=== PATIENT | male | born 1955 | race Caucasian/White ===

== ENCOUNTER 2024-09-03 07:10 | Day surgery (SDC) | payer OTHER, SELFPAY ==
[2024-09-03] VITALS (14 sets, daily range): BP systolic 115–161; BP diastolic 57–98; BMI 29.8
[2024-09-03] MEDS: LOW STRENGTH ASPIRIN 81 MG PO (07:54)
[2024-09-03 07:55] LABS: Glucose - Point of Care 152 mg/dl (70-99)
[2024-09-03] MEDS: NSS 200 IV (08:10)
[2024-09-03 08:35] LABS: Hematocrit 48.5 % (39.0-52.0); Hemoglobin 17.2 g/dL (13.0-18.0); Mean Corp Hgb Conc. 35.5 g/dL (33.0-37.0); Mean Corpuscular Hgb 31.4 pg (27.0-31.0); Mean Corpuscular Volume 88.7 fL (80.0-94.0); Mean Platelet Volume 11.2 fL (7.4-10.4); Platelet Count 159 10^3/uL (130-400); Red Blood Cell Count 5.47 10^6/uL (4.70-6.10); Red Cell Dist. Width 12.4 % (11.5-14.5); White Blood Cell Count 6.7 10^3/uL (4.8-10.8)
[2024-09-03 08:45] LABS: ALT (SGPT) 47 U/L (0-50); AST (SGOT) 34 U/L (17-59); Alkaline Phosphatase 85 U/L (38-126); Blood Urea Nitrogen 18 mg/dl (9-20); Calcium 9.7 mg/dl (8.4-10.2); Carbon Dioxide 22 mmol/L (22-30); Chloride 107 mmol/L (98-107); Estimated Creatinine Clearance > 125 ml/min; Glucose 138 mg/dl (70-99); Potassium 4.7 mmol/L (3.5-5.1); Sodium 141 mmol/L (135-145); Total Bilirubin 1.2 mg/dl (0.2-1.3); Total Protein 7.5 g/dl (6.3-8.2); eGFR > 60.00
--- NOTE | 2024-09-03 10:11 | ITS.CL.CATH ---
Winding Inspector And Tester - Catheterization
Cardiac Catheterization
Procedure Report:
LEFT HEART CATHETERIZATION
Date of Procedure: September 03, 2024
Procedures performed:
1: Coronary angiography
2: Left ventriculography
Primary Care Physician: Dr. Paula Mancilla
Primary Chapter Relations Administrator: Dr. Desmond Perez
INDICATION: The patient is a 69-year-old man who presents for coronary angiography in preparation for aortic valve intervention with progressive severe aortic valvular stenosis.
ACCESS: The patient was prepped and draped in usual sterile fashion. A 6 Algerian sheath was placed in the right radial artery using the Seldinger over the wire technique.
HEMODYNAMIC FINDINGS (mmHg):
LV(s/d,EDP): 230/19, 32
Ao(s/d,m): 150/71, 104
ANGIOGRAPHIC FINDINGS:
Single-plane Left Ventriculography in VELEZ Projection: Not done. Preserved LV systolic function by echo performed on August 06 with a visually estimated ejection fraction of 55 to 60%. Mean gradient by echo was 56 mmHg with a calculated aortic
valve area of 0.8 cm�.
Coronary Angiography:
Dominance: Codominant
Left Main: Short, normal.
Left Anterior Descending: The left anterior descending artery is a medium caliber vessel that gives rise to one major bifurcating diagonal branch. The LAD wraps around the apex to feed a significant portion of the distal inferior wall. These
vessels have only mild luminal irregularities.
Ramus intermedius: Medium caliber vessel that is angiographically normal.
Left Circumflex: The left circumflex is a medium caliber codominant vessel that gives rise to a large bifurcating first obtuse marginal branch and a large distal posterior left ventricular branch. These vessels are angiographically normal.
Right Coronary: The right coronary artery is a relatively small caliber codominant vessel that gives rise to a relatively small caliber posterior descending artery. These vessels have only very mild luminal irregularities.
Fluoroscopy Time (min): 4.6
Radiation Dose (mGy): 574
DAP (Gy.cm2): 36
Closure device: None. A TR band was applied for hemostasis at the right wrist.
Complications: None.
ASSESSMENT:
1: Very mild nonobstructive coronary artery disease. No significant change from prior angiography in 2011.
2: Severe aortic valvular stenosis.
CONCLUSIONS and RECOMMENDATIONS:
1: Proceed with evaluation for aortic valve intervention. Given his young age and history of PAF I think surgical valve replacement with left atrial appendage occlusion and intraoperative maze is more likely the most sensible way to proceed. Will
proceed with TAVR evaluation as well with chest and leg imaging as per routine and plan to present to the valve team.
Jeremías Cam M.D.
Copy to: Dr. Paula Mancilla
[2024-09-03 10:36] LABS: Glucose - Point of Care 121 mg/dl (70-99)
[2024-09-03] MEDS: COZAAR 100 MG PO (11:43)
[2024-09-03] MEDS: NSS IV ×5 (11:54→11:55)
[2024-09-03] MEDS: NSS 1000 IV (11:55)
--- NOTE | 2024-09-03 11:55 | CONSULT.STRU ---
Consultation
-
Date/Time Consultation Requested: 09/03/2024
Date/Time Consultation Performed: 09/03/2024
Requesting Provider: Dr. Cam
Performing Provider: CHIVO Liang
Reason for Consultation: Aortic stenosis
Patient History
Physicians
Family Physician: Paula Mancilla
Outpatient Photo Tech: Desmond Perez
Primary Photo Tech: Desmond Perez
History of Present Illness
Mr. Abdi is a very pleasant, well appearing 69yo male that underwent cardiac catheterization today with Dr. Cam as part of his aortic stenosis evaluation. He has been following with Dr. Perez and only recently has noticed mild FOX,
particularly when walking his driveway which has a slight incline. He denies chest pain, orthopnea, PND, peripheral edema or palpitations. He has a history of afib/ flutter but underwent an ablation with Dr. Perez in 2020 and since then has not
had any significant episodes. He does have Xarelto which he has been instructed to take if he goes into a-fib but currently is not taking. His echocardiogram on 08/06/2024 showed a peak aortic valve gradient of 92.2 mmHg. A mean aortic valve
gradient of 56.3 mmHg. There is mild to moderate aortic regurgitation. Anatomically Trileaflet, Functionally Bicuspid Aoric Valve wuth RCC and LCC calcific f. Mild to moderate AI. EF was 55-60%. Cardiac cath today showed very mild nonobstructive
coronary artery disease. No significant change from prior angiography in 2010.
Reviewed the pathophysiology of aortic stenosis with the patient and his . Explained the treatment options of SAVR and TAVR. Explained the TAVR evaluation process including follow up BMP, CT TAVR scan, CT surgery consult and Heart Team
discussion. Explained the need for lifetime planning given his young age. Provided with script for BMP next week, script and appointment for CT TAVR, Consult appointment with Dr. Morales and a copy of the TAVR education booklet with contact
information. Allowed for and answered questions.
Past Medical History
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
to moderate AI, trace TR) and Other (left knee effusion, osteoarthritis lorraine. knees, chronic headaches)
Past Surgical History
Past Surgical History: Appendectomy, Orthopedic (right knee surgery, Left rotator cuff repair) and Other (multiple excisions for skin CA)
Dental History
[facility]- will call to make appointment.
Family History
Mother: at Age (84yo, CHF)
Father: at Age (76yo, scleroderma)
Social History
Alcohol: Daily (5 beers/daily)
Drug: None
Tobacco: Former Smoker (quit 08/23/2020, prior 1/2 ppd x 40 years)
Personal:
Living: With Spouse
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
Allergies
Allergy/AdvReac Type Severity Reaction Status Date / Time
No Known Allergies Allergy Unverified 09/03/24 07:53
Home Medications
�Medication �Instructions �Recorded �Confirmed �Type
ascorbic acid (vitamin C) 500 mg 500 mg PO DAILY 07/26/10 09/03/24 History
chewable tablet (Vitamin C)
empagliflozin 25 mg tablet 25 mg PO DAILY 08/24/20 09/03/24 History
(Jardiance)
losartan 100 mg tablet 100 mg PO DAILY 08/24/20 09/03/24 History
metformin 1,000 mg tablet 1,000 mg PO BID 08/24/20 09/03/24 History
multivitamin (One Daily tablet) 1 ea PO DAILY 08/24/20 09/03/24 History
omega-3 acid ethyl esters 1 gram 1 gm PO BID 08/24/20 09/03/24 History
capsule (Lovaza)
sertraline 50 mg tablet 50 mg PO DAILY 08/24/20 09/03/24 History
tamsulosin 0.4 mg capsule 0.4 mg PO DAILY 08/24/20 09/03/24 History
Lactobacillus 40-Bifidobact cap PO 09/03/24 History
3-S.thermophilus 100 billion cell
capsule (Probiotic)
aspirin 81 mg capsule 81 mg PO DAILY 09/03/24 09/03/24 History
cholecalciferol (vitamin D3) 50 50 mcg PO DAILY 09/03/24 09/03/24 History
mcg (2,000 unit) capsule (Vitamin
D3)
propranolol 160 mg capsule,24 160 mg PO DAILY 09/03/24 09/03/24 History
hr,extended release
propranolol 80 mg capsule,24 80 mg PO DAILY 09/03/24 09/03/24 History
hr,extended release
zinc acetate 50 mg (zinc) capsule 50 mg PO DAILY 09/03/24 09/03/24 History
STS%
STS %: 0.611%
Review of Systems
-
History Source: Patient and Family
General: Reports No Symptoms; Denies Fever, Fatigue or Sleep Disturbance
HEENT: Reports Visual Changes (occasional double vision in right eye r/t headaches)
Respiratory: Reports FOX (mild but more noticeable recently); Denies PND
Cardiac: Reports No Symptoms; Denies Chest Pain, CAD, Known Vascular Disease, Palpitations or Edema
Abdomen/GI: Reports Other (IBS); Denies Abdominal Pain, Reflux, Nausea or Vomiting
: Reports No Symptoms; Denies Dysuria, Frequency or Hematuria
Musculoskeletal: Denies No Symptoms or Edema
Skin: Denies No Symptoms
Neurological: Reports CVA (noted small chronic infarct in right parietal lobe on MRI 08/14/2024) and Headaches (chronic, 'cluster', above right eye); Denies Syncope, Dizzy or Weakness
Vascular: Reports No Symptoms; Denies Claudication
Physical Exam
Vital Signs
Temp 98.1 F 09/03/24 07:48
Temp route: Oral 09/03/24 07:48
Pulse 55 09/03/24 11:43
Resp Rate 18 09/03/24 07:48
Blood pressure 144/66 09/03/24 11:43
Blood pressure extremity used: Left upper arm 09/03/24 10:30
Position: Lying 09/03/24 10:30
MAP (cuff-Melissa Monitor) 101 09/03/24 10:20
SaO2 96 09/03/24 10:21
Oxygen Mode of Delivery Room air 09/03/24 10:30
Can the patient verbally communicate their pain? Yes 09/03/24 10:30
Actual Weight 111.13 kg 09/03/24 08:00
Body Mass Index (BMI) 29.8 09/03/24 08:00
Labs
09/03/24 07:45
09/03/24 07:45
Diagnostic Studies
08/06/2024 Echocardiogram ([facility]):
SUMMARY
1. Left ventricular ejection fraction, by visual estimation, is 55 to 60%.
2. Moderate concentric left ventricular hypertrophy.
3. Abnormal LV diastolic function.
4. Severely dilated left atrium by volume index 52.2 mL/m2.
5. Normal right ventricular size and systolic function.
6. Normal right atrium by area 23.5 cm2.
7. Anatomically Trileaflet, Functionally Bicuspid Aoric Valve wuth RCC and LCC calcific Fusion.
8. AoV velocity of 4.80 m/s; Peak aortic valve gradient = 92.2 mmHg; Mean gradient = 56.3 mmHg; AoV Area by continuity equation = 0.81 cm2; AoV Dimensionless Index = 0.29.
9. Severe aortic valve stenosis. Mild to moderate aortic regurgitation.
10. Right atrial pressure of (3 mmHg), the estimated right ventricular systolic pressure is normal at (23.8 mmHg).
11. Compared to prior study 07/18/2023, Aortic Gradients have increased.
12. Study done in Normal sinus rhythm.

PHYSICIAN INTERPRETATION
Left Ventricle:
The left ventricular internal cavity size was normal. There is moderate concentric left ventricular hypertrophy. Abnormal LV diastolic function. Left ventricular ejection fraction, by visual estimation, is 55 to 60%.
LV Wall Scoring:
All segments are normal.
Right Ventricle:
Normal right ventricular size, wall thickness, and systolic function. The tricuspid regurgitant velocity predicts an estimated right ventricular systolic pressure of 23.8 mmHg.
Left Atrium:
The left atrium is severely dilated by volume index 52.2 mL/m2.
Right Atrium:
Right atrium is normal by area 23.5 cm2.
Inferior vena cava normal in size (<2.1 cm) + greater than 50% variably consistent with normal right atrial pressures (3 mmHg).
Interatrial Septum:
Interatrial and interventricular septa appear intact, with no obvious evidence of intracardiac shunting by spectral or color Doppler.
Aortic Valve:
Doppler findings and restricted movement of the aortic valve cusps are consistent with severe aortic stenosis. The peak aortic valve gradient is 92.2 mmHg. The mean aortic valve gradient is 56.3 mmHg. There is mild to moderate aortic regurgitation.
Anatomically Trileaflet, Functionally Bicuspid Aoric Valve wuth RCC and LCC calcific Fusion.
Mitral Valve:
Structurally normal mitral valve with normal leaflet opening and closing, without any evidence of mitral stenosis or significant regurgitation. The calculated mitral valve area is 3.16 cm�, using a pressure half-time of 70 msec.
Tricuspid Valve:
There is trace tricuspid valve regurgitation. The tricuspid regurgitant velocity is (2.28 m/s), and with an assumed right atrial pressure of (3 mmHg), the right ventricular systolic pressure is normal (23.8 mmHg).
Pulmonary Valve:
There is trace pulmonary valve regurgitation.
Aorta:
The aortic root and ascending aorta appear normal in dimensions, with no evidence of dilatation or obstruction.
Pericardium:
There is no evidence of pericardial effusion.
Sinus Rhythm: Normal sinus rhythm.
Exam
General: Well Developed, Well Nourished, No Apparent Distress and Comfortable
HEENT: Normocephalic, PERRLA and EOMI
Neck: Trachea Midline
Respiratory: Clear; Negative Wheezes, Crackles or Rhonchi
Cardiac: S1/S2, Regular Rhythm (bradycardic) and Murmur (Grade III/ ANA MARIA)
GI: Soft, Non Tender, Non Distended and Normal Bowel Sounds
Rectal: Deferred by Provider
Skin: Warm and Dry
Neuro: AO x 3 and Nonfocal/Grossly Intact
Extremities: Pulses (Palpable DP pulses bilaterally); Negative Lower Level Edema
Psych: Calm
Assessment / Plan
-
Procedure Type:�Isolated AVR
Perioperative Outcome Estimate %
Operative Mortality 0.611%
Morbidity & Mortality 5.72%
Stroke 1.05%
Renal Failure 0.519%
Reoperation 3.13%
Prolonged Ventilation 2.13%
Deep Sternal Wound Infection 0.04%
Long Hospital Stay (>14 days) 1.81%
Short Hospital Stay (<6 days)* 60.4%
Severe Aortic stenosis:
����������� Continue evaluation for aortic stenosis as outpatient--> TAVR vs SAVR
����������� BMP next week at [facility]
����������� CT TAVR scan 09/18/2024 at
����������� CT surgery consult with Dr. Morales� 10/06/2024
����������� Dental Clearance ([facility])
����������� Heart team discussion at [facility]
Data Reviewed
-
Diamond Wheel Molder: Report Reviewed by me and Discussed with Physician
Echo: Report Reviewed by me and Discussed with Physician
MRI: Report Reviewed by me
Labs: Labs Reviewed by me
Old Records: Reviewed (Cardiology office notes)
Total Time Spent with Patient (in minutes): 40
== END 2024-09-03 13:44 | disposition home or self-care (01) ==
LOC: CATH 07:10
PROVIDERS: ATTENDING PHYSICIAN Internal Medicine Interventional Cardiology; FAMILY PHYSICIAN Family Medicine; OTHER PHYSICIAN Internal Medicine Cardiovascular Disease
DX: I35.2 Nonrheumatic aortic (valve) stenosis with insufficiency (principal); I25.10 Atherosclerotic heart disease of native coronary artery without angina pectoris; I48.0 Paroxysmal atrial fibrillation; I48.92 Unspecified atrial flutter; Z79.82 Long term (current) use of aspirin; C64.9 Malignant neoplasm of unspecified kidney, except renal pelvis; G47.33 Obstructive sleep apnea (adult) (pediatric); Z79.84 Long term (current) use of oral hypoglycemic drugs; Z86.73 Personal history of transient ischemic attack (TIA), and cerebral infarction without residual deficits; E11.9 Type 2 diabetes mellitus without complications; Z82.49 Family history of ischemic heart disease and other diseases of the circulatory system; Z87.891 Personal history of nicotine dependence
CPT/HCPCS: 80053; 82962; 85027; 93458; C1894

== ENCOUNTER → 2024-09-18 08:47 | Outpatient (REF) | payer OTHER, SELFPAY | LOC: RAD 08:47 | PROVIDERS: ATTENDING PHYSICIAN Nurse Practitioner Adult Health; FAMILY PHYSICIAN Internal Medicine Cardiovascular Disease; OTHER PHYSICIAN Family Medicine; REFERRING PHYSICIAN Internal Medicine Interventional Cardiology | DX: I35.0 Nonrheumatic aortic (valve) stenosis (principal) | CPT/HCPCS: 74174; 75572; Q9967 ==

== ENCOUNTER 2024-11-05 04:58 | Inpatient (IN) | payer OTHER, SELFPAY ==
[2024-10-08 08:35] VITALS: BMI 30.9
[2024-10-08 09:19] LABS: Urine Albumin Negative (Neg - Trace); Urine Bilirubin Negative (Negative); Urine Character Clear (Clear); Urine Color Yellow; Urine Glucose 4+ (Negative); Urine Ketone Negative (Negative); Urine Leukocyte Negative (Negative); Urine Nitrite Negative (Negative); Urine Occult Blood Negative (Negative); Urine Specific Gravity 1.015 (<1.030); Urine Urobilinogen Negative (Neg - 1+)
[2024-10-08 09:22] LABS: % Basophils 0.8 % (0-2); % Eosinophils 3.8 % (0-6); % Immature Granulocytes 0.3 % (0-0.5); % Monocytes 13.8 % (1.7-9.3); % Neutrophils 59.3 % (42.2-75.2); Absolute Basophils 0.1 10^3/uL (0-0.2); Absolute Eosinophils 0.2 10^3/uL (0-0.7); Absolute Lymphocytes 1.4 10^3/uL (1.2-3.4); Absolute Monocytes 0.9 10^3/uL (0.1-0.6); Absolute Neutrophils 3.8 10^3/uL (1.4-6.5); Hemoglobin 16.9 g/dL (13.0-18.0); Mean Corp Hgb Conc. 33.8 g/dL (33.0-37.0); Mean Corpuscular Hgb 31.1 pg (27.0-31.0); Mean Corpuscular Volume 91.9 fL (80.0-94.0); Mean Platelet Volume 10.9 fL (7.4-10.4); Nucleated Red Blood Cells % 0 % (-); Platelet Count 141 10^3/uL (130-400); Red Blood Cell Count 5.44 10^6/uL (4.70-6.10); Red Cell Dist. Width 12.9 % (11.5-14.5); White Blood Cell Count 6.4 10^3/uL (4.8-10.8)
[2024-10-08 09:28] LABS: INR 0.93; PT 12.9 Sec (11.4-14.6)
[2024-10-08 09:29] LABS: APTT 30.5 Sec (23.4-35.0)
[2024-10-08 09:46] LABS: Glycohemoglobin (HgbA1c) 6.2 % (4.0-5.6)
[2024-10-08 10:05] LABS: ALT (SGPT) 41 U/L (0-50); AST (SGOT) 30 U/L (17-59); Albumin 4.8 g/dl (3.5-5.0); Alkaline Phosphatase 84 U/L (38-126); Blood Urea Nitrogen 17 mg/dl (9-20); Calcium 9.4 mg/dl (8.4-10.2); Carbon Dioxide 26 mmol/L (22-30); Chloride 101 mmol/L (98-107); Direct Bilirubin 0.3 mg/dl (0.0-0.4); Estimated Creatinine Clearance 121 ml/min; Glucose 141 mg/dl (70-99); Potassium 4.8 mmol/L (3.5-5.1); Sodium 138 mmol/L (135-145); Total Bilirubin 1.3 mg/dl (0.2-1.3); Total Protein 7.2 g/dl (6.3-8.2); eGFR > 60.00
--- NOTE | 2024-10-08 10:27 | CM ---
CM following for DC planning needs.
Met w/ patient and spouse, Svetlana during PATs for AVR, 10/21.
Pt. resides in a private, 2 st home + basement. Home is accessible via ramp or several steps.
Pt.'s bedroom is located on the 2nd floor. Pt. is indep. w/ ADLs, mobility without the use of any assisted device. Pt. has CPAP, which he uses when he is not ill w/ respiratory virus.
Reviewed pre and post op routines.
Soap, shower instructions and Cardiac Surgery booklet reviewed and provided.
Reviewed post op restrictions to include lifting, driving, flying and sternal precautions.
Reviewed post op MD appointments, Cardiac Rehab and visit from CT Transitional Care RN.
Plan for CT Surgery, 10/21.
Antic. DC plan is for home w/ CT Transitional Care RN.
CM to follow.
[2024-11-05] VITALS (19 sets, daily range): BP systolic 80–186; BP diastolic 57–93; BMI 29.2
[2024-11-05] MEDS: PROTONIX 40 MG PO (05:40)
[2024-11-05] MEDS: MAGNESIUM OXIDE 500 MG PO (05:41)
[2024-11-05] MEDS: BACTROBAN 2% OINTMENT 1 APPLIC NASAL ×2 (05:41→20:06)
[2024-11-05] MEDS: LOPRESSOR 25 MG PO (05:41)
--- NOTE | 2024-11-05 06:00 | PTCARENOTE ---
Patient admitted to CVICU for day of surgery. Patient washed with CHG wipes, clipped, and admission questions asked. Patient states he has 5 or more drinks in a day about once per week and has about 1 drink everyday, CT PA ed notified. Med list
reviewed and medications administered. Awaiting CVOR.
--- NOTE | 2024-11-05 06:15 | W.CVOR.SURPR ---
CVOR Surgeon Immed Pre Op
-
I have examined this patient prior to performance of the scheduled procedure.
The patient's condition is unchanged from the time of the dictated/written History and
Physical and the patient is able to undergo the scheduled procedure.
Sternotomy AVR (bio), LA MAZE, WANDER Clip
[2024-11-05 07:24] LABS: ACT+ - POC 120 Seconds (82-134)
[2024-11-05 07:45] LABS: Urine Albumin 3+ (Neg - Trace); Urine Bilirubin Negative (Negative); Urine Character Slightly Cloudy (Clear); Urine Color Yellow; Urine Glucose 1+ (Negative); Urine Ketone Negative (Negative); Urine Leukocyte 1+ (Negative); Urine Nitrite Negative (Negative); Urine Occult Blood Negative (Negative); Urine Urobilinogen Negative (Neg - 1+)
[2024-11-05 08:04] LABS: Urine Squamous Cell 0-2 /LPF (Few)
[2024-11-05 08:05] LABS: Urine Bacteria Few (Negative); Urine Hyaline Cast 0-2 /LPF (0-2); Urine Mucus Few; Urine Red Blood Cell 0-2 /HPF (0-2)
[2024-11-05 08:45] LABS: ACT+ - POC 662 Seconds (82-134)
[2024-11-05 08:47] LABS: B.E. - POC 0.7 mmol/L; Glucose - POC 146 mg/dl (70-99); HCO3 - POC 28 mmol/L (21-28); Hematocrit - POC 49 % PCV (42-52); Hemodilution- POC No; Hemoglobin Calculated - POC 16.6; Ionized Calcium - POC 1.22 mmol/L (1.15-1.33); Lactate - POC 1.44 mmol/L (0.36-0.75); O2 Saturation %Calculated-POC 98.9 % (94-98); PCO2 - POC 51 mmHg (35-48); PO2 - POC 137 mmHg (83-108); Potassium - POC 4.1 mmol/L (3.5-5.1); Sodium - POC 142 mmol/L (136-145); Specimen Type - POC Arterial; pH - POC 7.34 (7.35-7.45)
[2024-11-05 08:59] LABS: ACT+ - POC 668 Seconds (82-134)
[2024-11-05 09:29] LABS: ACT+ - POC 589 Seconds (82-134)
[2024-11-05 09:42] LABS: B.E. - POC 0.1 mmol/L; Glucose - POC 147 mg/dl (70-99); HCO3 - POC 27 mmol/L (21-28); Hematocrit - POC 40 % PCV (42-52); Hemodilution- POC Yes; Hemoglobin Calculated - POC 13.5; Ionized Calcium - POC 1.09 mmol/L (1.15-1.33); Lactate - POC 0.78 mmol/L (0.36-0.75); O2 Saturation %Calculated-POC 99.9 % (94-98); PCO2 - POC 51 mmHg (35-48); PO2 - POC 281 mmHg (83-108); Potassium - POC 4.7 mmol/L (3.5-5.1); Sodium - POC 141 mmol/L (136-145); Specimen Type - POC Arterial; pH - POC 7.33 (7.35-7.45)
[2024-11-05 09:54] LABS: ACT+ - POC 606 Seconds (82-134)
[2024-11-05 10:08] LABS: Glucose - POC 162 mg/dl (70-99); HCO3 - POC 27 mmol/L (21-28); Hematocrit - POC 43 % PCV (42-52); Hemodilution- POC Yes; Hemoglobin Calculated - POC 14.5; Lactate - POC 0.45 mmol/L (0.36-0.75); O2 Saturation %Calculated-POC 99.9 % (94-98); PCO2 - POC 45 mmHg (35-48); PO2 - POC 352 mmHg (83-108); Potassium - POC 5.4 mmol/L (3.5-5.1); Sodium - POC 141 mmol/L (136-145); Specimen Type - POC Arterial; pH - POC 7.38 (7.35-7.45)
[2024-11-05 10:11] LABS: ACT+ - POC 129 Seconds (82-134)
--- NOTE | 2024-11-05 10:50 | W.PN.CT.SURG ---
CT Surgery Operative Note
-
CARDIAC SURGERY OPERATIVE REPORT
Preoperative Diagnosis: Severe aortic valve stenosis with functional bicuspid valve and symptomatic
Postoperative Diagnosis: Same
Procedure(s) Performed:
1. Standard sternotomy with aortic and right atrial cannulation
2. Surgical aortic valve replacement [25 mm bioprosthetic valve]
3. Modified left atrial maze [posterior wall isolation using the encompass clamp]
4. Left atrial appendage exclusion [35 mm device]
5. Placement of temporary ventricular pacing wires
6. Transesophageal echocardiography
7. Sternal plating
Date of Surgery: 11/05/2024
Comorbidities:
1. Severe aortic valve stenosis, symptomatic
2. Bicuspid aortic valve with left right fusion, type II
3. Hypertension
4. Hyperlipidemia
5. Diabetes type 2
6. Paroxysmal atrial fibrillation
7. History of CVA TIA
8. Sleep apnea
9. IBS
10. Enlarged prostate
Attending Surgeon: Justino Morales MD, MS
Assistants: Justino Kramer PA-C (present and necessary to anatomic pathology assistant, retraction, suction, exposure, suture management, and wound closure under my direction)
Anesthesiology: Wyatt Hassan MD and Murtaza Thakur CRNA
Scrub and Circulating RNs: Justin Paris RN, Megan Arguello RN
Accounts Adjustable Clerk: Alise Zamora CCP
Anesthesia: GETA
EBL: per perfusion records
Products: None
CPB Time: 74 minutes
Aortic Cross Clamp Time: 56 minutes
Indication(s) for Procedures: This is a 69-year-old male with known severe aortic valve stenosis. He recently came symptomatic in the form of shortness of breath with exertion and especially on inclines. His gradients were also in the critical
range with a mean gradient of proximal to 56 mmHg. Given his young age, bicuspid valve morphology and likely need for additional intervention down the line, he was referred for consideration of TAVR versus SAVR. Multidisciplinary team discussion
ultimately concluded that with his A-fib, history of strokes,, good functional status, and young age he was better served with a SAVR plus maze plus clip.
Aortic Valve Description: Fused left right coronary cusps, heavily calcified body of the leaflets with infiltration towards the noncoronary annulus, left and right coronary ostia of the normal anatomic positions, STJ was somewhat calcified
Findings: His left ventricular ejection fraction preoperatively was 60% with no significant regional wall motion abnormalities. He did have a moderate degree of left ventricular hypertrophy. Following surgery his EF remained the same at 60 to 65%
with no new regional wall motion abnormalities. RV size and function are both normal. His aortic valve was replaced using a 25 mm bioprosthesis secured into place with a total of 17 nonpledgeted 2 Ethibond sutures with core knots. A posterior
wall isolation maze was performed using the encompass clamp across the transverse and oblique sinuses below the SVC and IVC. 3 successful pair of ablations were performed. The left atrial appendage was excluded with a 35 mm device. After coming
off cardiopulmonary bypass, there was no paravalvular leaks, his mean gradient across the new valve while slightly hyperdynamic was approximately 8 mmHg, all leaflets with normal excursion. He did not require inotropic support and was on Cardene,
cardiac index was well over 2, he was in sinus rhythm not requiring pacing, no blood products were given.
Specimen(s): Aortic valve leaflet.
Prosthesis:
1. 35mm left atrial appendage clip, serial #[id number]
2. 25 mm Parikh Inspiris Resilia aortic valve bioprosthesis, serial #[id number]
3. Gold mustache plate and gold box plate, 16mm screws x 8
Description of Procedure: The patient was taken to the operating room. Their identity and procedure to be performed were verified and they were positioned supine on the operating table. Induction via general anesthesia with endotracheal intubation
was performed and central venous access and arterial monitoring were inserted. A preoperative transesophageal echocardiogram was performed to assess cardiac function and valvular function. The patient was then prepped and draped from chin to feet in
a sterile fashion. A preoperative time-out was performed with all members of the team present. A midline chest incision was performed along with median sternotomy. The innominate vein was isolated. Full heparinization was given (a total of 45,000
units). We created a pericardial well. The aortic cannulation site was chosen where it was soft, pliable, and free of calcium. Cannulation was performed with an arterial cannula in the ascending aorta and a triple-stage venous cannula through the
right atrial appendage. The arterial cannula line had an appropriate bounce and correlating pressures with test dosing. Next, a root vent/antegrade cannula was inserted into the ascending aorta. The ACT was confirmed to be over 400 and retrograde
autologous priming was performed before commencing cardiopulmonary bypass. The SVC was then away from the right pulmonary artery. The oblique sinus was also developed. The encompass clamp was passed across the transverse and oblique
sinuses underneath the SVC and IVC using a rubber magnetic catheter as guidance. 3 successful pairs of ablation were performed while on cardiopulmonary bypass. The pulmonary artery was away from the aorta to facilitate a clamp site and
aortotomy. The aortic cross-clamp was placed after decreasing the flow on the bypass and mean arterial pressure. A left ventricular vent was placed at the right superior pulmonary vein and secured. A total of 1.2L initial dose of antegrade Del-Nido
cardioplegia solution was given and planned for re-dosing every 75 minutes as necessary. There was rapid electro-mechanical arrest of the heart at 300 cc of cardioplegia. The left ventricle was observed for distention on echocardiogram and manual
palpation. Cold slush was placed into a sponge and topically on the RV while we systemically cooled to 34 degrees centigrade. Once the heart was fully arrested it was rotated medially and the left atrial appendage was sized to a 35 mm device and
clipped flush to the base.
Carbon dioxide was used to flood the field. We manually identified the location of the right coronary take off. An aortotomy was made approximately 2cm above the sinotubular junction. The location of both left and right coronary vessels were
visualized in the root.The leaflets were excised and sent for pathological assessment. The annulus was debrided of any calcium being mindful of the annulus and membranous septum. The root and left ventricular outflow tract were thoroughly irrigated
to remove any debris. A total of 17 non-pledgeted 2-0 ethibond inverted annular sutures were placed [id number] circumferentially. These were brought through the sewing cuff of the prosthetic valve which was then parachuted into place. The left
and right coronary ostia were visualized and were unobstructed by the valve. A Cor-Knot device was used to secure the annular sutures. The valve was inspected and was well seated. The aortotomy was approximated with 4-0 prolene in two layers.
Hemostatic sealant agent dense absorbable was then placed over top. De-airing maneuvers were performed and temporary bipolar ventricular pacing wires were placed on the base of the right ventricle. The patient was placed in a Trendelenburg position
and flows on bypass were lowered. The aortic cross clamp was removed and flows were slowly brought back up. The aortotomy appeared hemostatic. Transesophageal echocardiography revealed no paravalvular leak and appropriate prosthetic function. Once
de-airing was satisfactory, the left ventricular and root vents were removed. After verifying acceptable parameters, we initiated weaning from cardiopulmonary bypass. Once we were off cardiopulmonary bypass, the venous cannula was clamped and
removed. A test dose of protamine was administered and the patient was monitored for any adverse reaction before resuming protamine. Once half of the protamine dose was delivered, pump suckers were turned off and the systolic blood pressure was
lowered for aortic decannulation. The aortic cannula was removed and pursestrings were tied down. All cannulation sites were oversewn with a 4-0 prolene. The aortotomy suture line was inspected and hemostasis was confirmed. Mediastinal hemostasis
was obtained. Two 24Fr Amos drains were placed within the pericardium. The sternum was approximated with 4#7 single and 3 #8 double stainless steel wires. Additional plates were placed given the patient's body habitus and activity level. Fascia
was approximated with #1 vicryl suture. The subcutaneous, dermis and epidermis were closed in layers in a running fashion. The skin wound was cleansed and dressed.
All instrument, sponge, and needle counts were confirmed to be correct x 2 at the end of the operation. The patient was transferred to the cardiac intensive care unit in critical but stable condition.
I, Dr. Justino Morales, was present, scrubbed for, and performed all critical elements of this procedure.
Justino Morales MD, MS
Cardiothoracic Surgeon
[facility]
This operative dictation was created using the [employer] dictation system. Please excuse any grammatical, typographical, or 'sound alike' errors
[2024-11-05] MEDS: NOVOLOG FLEXPEN SC ×3 (10:52→16:16)
[2024-11-05] MEDS: NEURONTIN PO ×2 (10:52→16:16)
[2024-11-05 10:58] LABS: B.E. - POC 1.8 mmol/L; Glucose - POC 129 mg/dl (70-99); HCO3 - POC 28 mmol/L (21-28); Hematocrit - POC 40 % PCV (42-52); Hemodilution- POC Yes; Hemoglobin Calculated - POC 13.7; Ionized Calcium - POC 1.12 mmol/L (1.15-1.33); Lactate - POC < 0.30 mmol/L (0.36-0.75); PCO2 - POC 49 mmHg (35-48); PO2 - POC 435 mmHg (83-108); Sodium - POC 144 mmol/L (136-145); Specimen Type - POC Arterial; pH - POC 7.37 (7.35-7.45)
[2024-11-05 11:00] LABS: B.E. - POC -2.6 mmol/L; Glucose - POC 150 mg/dl (70-99); HCO3 - POC 22 mmol/L (21-28); Hematocrit - POC 37 % PCV (42-52); Hemodilution- POC Yes; Hemoglobin Calculated - POC 12.6; Ionized Calcium - POC 1.25 mmol/L (1.15-1.33); Lactate - POC 1.34 mmol/L (0.36-0.75); O2 Saturation %Calculated-POC 99.7 % (94-98); PCO2 - POC 39 mmHg (35-48); PO2 - POC 193 mmHg (83-108); Potassium - POC 5.7 mmol/L (3.5-5.1); Sodium - POC 139 mmol/L (136-145); Specimen Type - POC Arterial; pH - POC 7.37 (7.35-7.45)
--- NOTE | 2024-11-05 11:00 | PTCARENOTE ---
Received patient from [facility] at 1100. Pt intubated and sedated on precedex gtt. POX 91%-CT RESTAURANT SUPERVISOR aware. PERRLA 3mm brisk. Unresponsive. SIMV 100% 14 600 8. 8.0 ETT 24cm at the lip. Mediastinal chest tubes x2 y-sited to 1 atrium to -20cm suction draining
red fluid. No air leaks, tidaling, crepitus noted. SB with prolonged QT on tele with rates in the 40s-50s. BP controlled with cardene, switched to Nitro d/t possible shunting. CI 1.92. CT RESTAURANT SUPERVISOR aware. PA pressures 30s/10s-20s. CVP 12. Epicardial v-wire
to temp pacer box, turned off. Bilateral radial and DP pulses palpable. No edema noted. Heart tones audible. B/l anterior lung sounds present. Abdomen soft, round. Hypoactive BS. Daly intact draining adequate amounts of clear miguelina urine. Sternal
incision approximated with skin glue, RAMANDEEP. Right IJ cordis intact with swan floated to 52cm. Left radial tavo intact with appropriate waveform. All lines flushed, leveled, zeroed. Right forearm 18g PIV intact infusing insulin gtt per Critical Care
Glycemic Protocol. Post-op labs, EKG, CXR obtained. See MAR for medication administration. See worklist for complete nursing assessment.
--- NOTE | 2024-11-05 11:05 | CON.INTV ---
Consultation
Consultation Request
Date/Time Consultation Requested: 11/05/2024 - 1019
Date/Time Consultation Performed: 11/05/2024 - 1047
Requesting Provider: CHIVO Alves
Performing Provider: Dr. Elder
Reason for Consultation: s/p SAVR
Medical History
-
Chief Complaint: Elective surgical aortic valve replacement
History of Present Illness:
69-year-old male with a past medical history of aortic valve stenosis, paroxysmal A-fib, hypertension, hyperlipidemia, DM type II, history of CVA/TIA, sleep apnea, IBS, diverticulosis and BPH who presents for elective surgical aortic valve
replacement. Patient known to cardiothoracic surgery service with last visit 10/06/[address] Morales. Patient has history of aortic stenosis dating back as far as August 2020 which was moderate at that time with a peak/mean gradient of 39/26 with
an JM of 1.2 cm�. Most recent echo in July 2024 showed a peak/mean gradient of 92/56 mmHg respectively with an JM of 0.1 cm�. He has known bicuspid morphology with right left fusion. Left heart catheterization on 09/03/2024 showed very mild
nonobstructive CAD with severe aortic valvular stenosis. Cardiothoracic intervention was discussed as he has been more short of breath especially with inclines. Patient agreed to aortic valve replacement, and today underwent a surgical aortic
valve replacement with a 25 mm bioprosthetic valve, with modified left atrial MAZE, and left atrial appendage exclusion with a 35 mm device. Patient tolerated the procedure well with no complications, and was transferred to the CVICU
postoperatively with Dialysis Patient Care Technician services consulted for additional management/recommendations.
When I saw the patient, he was intubated on SIMV at 16/600/40%/8, with PIP 25 cmH2O, VTe 542 mL and breathing at 16 breaths/min. Heart rate 50, BP via A-line 94/48, PAP 23/15, BP via NIBP: 85/57, CO/CI 3.67/1.54, and SaO2 95%. Currently on
nitroglycerin drip at 70 mcg/min, as well as insulin drip at 2.6 units/hr. Mediastinal chest tubes x [address]
PMHx: Hypertension, hyperlipidemia, DM type II, osteoarthritis, cluster headaches, history of A-fib, history of CVA/TIA, sleep apnea, IBS, aortic stenosis, diverticulosis, BPH
PSHx: Appendectomy, knee surgery, tonsillectomy, cardioversion, ablation, multiple excisions for skin cancer, left rotator cuff repair
Past Medical History
Past Medical History: Other (Above as per HPI)
Past Surgical History: Other (Above as per HPI)
Social History
Tobacco: Former Smoker (29-bovf-fbgr history, quit August 2020)
Alcohol: Daily (6 beers a day)
Drug: None
Personal:
Living: With Family
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
Family History
Family History: CAD and Other (Father: CHF)
Allergies / Home Medications
Allergies
Allergy/AdvReac Type Severity Reaction Status Date / Time
pollen extracts Allergy seasonal Verified 10/07/24 10:10
allergies
Home Medications
�Medication �Instructions �Recorded �Confirmed �Last Taken �Type
empagliflozin 25 mg tablet 25 mg PO DAILY Heart 08/24/20 11/05/24 11/02/24 10:30 History
(Jardiance) Disease/Condition
losartan 100 mg tablet 100 mg PO DAILY Blood Pressure 08/24/20 11/05/24 11/03/24 10:30 History
metformin 1,000 mg tablet 1,000 mg PO BID Diabetes 08/24/20 11/05/24 11/04/24 22:30 History
omega-3 acid ethyl esters 1 gram 2 gm PO BID Supplement 08/24/20 11/05/24 10/28/24 22:30 History
capsule (Lovaza)
sertraline 50 mg tablet 50 mg PO DAILY Mental 08/24/20 11/05/24 11/04/24 10:30 History
Health/Anxiety
tamsulosin 0.4 mg capsule 0.4 mg PO DAILY Urinary Issue 08/24/20 11/05/24 11/04/24 22:30 History
Lactobacillus 40-Bifidobact 1 cap PO DAILY Gastrointestinal 09/03/24 11/05/24 10/28/24 10:30 History
3-S.thermophilus 100 billion cell Issue
capsule (Probiotic)
aspirin 81 mg capsule 81 mg PO DAILY Blood Clot 09/03/24 11/05/24 11/04/24 10:30 History
Prevention/Tx
cholecalciferol (vitamin D3) 50 50 mcg PO DAILY Supplement 09/03/24 11/05/24 10/28/24 10:30 History
mcg (2,000 unit) capsule (Vitamin
D3)
propranolol 160 mg capsule,24 160 mg PO DAILY Blood Pressure 09/03/24 11/05/24 11/04/24 10:00 History
hr,extended release
propranolol 80 mg capsule,24 80 mg PO DAILY Blood Pressure 09/03/24 11/05/24 11/04/24 History
hr,extended release 1000
zinc acetate 50 mg (zinc) capsule 50 mg PO DAILY Supplement 09/03/24 11/05/24 10/28/24 10:30 History
ascorbic acid (vitamin C) 1,000 mg 1,000 mg PO DAILY Supplement 10/07/24 11/05/24 10/28/24 10:30 History
tablet (Vitamin C)
fexofenadine 180 mg tablet 180 mg PO DAILY Allergies 10/07/24 11/05/24 10/28/24 10:30 History
fluticasone propionate 50 1 spray intranasal DAILY Allergies 10/07/24 11/05/24 10/21/24 History
mcg/actuation nasal
spray,suspension
magnesium 500 mg PO DAILY Electrolyte 10/07/24 11/05/24 10/28/24 10:30 History
Repletion
zqgrfmsndwse-qbkyottj-daawll 1 tab PO DAILY Supplement 10/07/24 11/05/24 10/28/24 10:30 History
tablet (Multivitamin 50 Plus
tablet)
rosuvastatin 20 mg tablet 20 mg PO DAILY High Cholesterol 10/07/24 11/05/24 11/04/24 10:30 History
Review of Systems
-
Unable to Obtain full review of systems at this time due to: Patient Intubation
Vitals / Labs / Diagnostic Testing
Vital Signs
Temp Pulse Resp BP Pulse Ox
97.7 F 51 14 85/57 99
11/05/24 16:00 11/05/24 16:27 11/05/24 16:27 11/05/24 16:00 11/05/24 16:27
Lab Data
11/05/24 15:55
11/05/24 11:04
Laboratory Results
11/05/24
11:04
PT 17.4 H
INR 1.37
APTT 35.1 H
pH 7.37
pCO2 45
pO2 66 L
HCO3 26.0
O2 Delivery Level Not Reportable
Diagnostic Testing:
Physical Exam
-
HEENT: Normocephalic, Anicteric and Other (ETT in place)
Cardiovascular: S1/S2, Peripheral Edema (negative) and Other (Bradycardic)
Respiratory: Wheeze (negative), Rales (negative), Rhonchi (negative), Non-Labored Respirations and Other (Mechanical breath sounds heard bilaterally)
GI: Soft, Non Distended, Non Tender and Normal Bowel Sounds
Neurology: Tremors (negative) and Other (Sedated)
Skin: Warm and Dry
General: Respiratory Distress (negative), Comfortable, Fever (negative) and Chills (negative)
Assessment
-
Assessment: 69-year-old male with a past medical history of aortic valve stenosis, paroxysmal A-fib, hypertension, hyperlipidemia, DM type II, history of CVA/TIA, sleep apnea, IBS, diverticulosis and BPH who presents for elective surgical aortic
valve replacement. Patient known to cardiothoracic surgery service with last visit 10/06/[address] Morales. Patient has history of aortic stenosis dating back as far as August 2020 which was moderate at that time with a peak/mean gradient of 39/26
with an JM of 1.2 cm�. Most recent echo in July 2024 showed a peak/mean gradient of 92/56 mmHg respectively with an JM of 0.1 cm�. He has known bicuspid morphology with right left fusion. Left heart catheterization on 09/03/2024 showed very
mild nonobstructive CAD with severe aortic valvular stenosis. Cardiothoracic intervention was discussed as he has been more short of breath especially with inclines. Patient agreed to aortic valve replacement, and on 11/05/2024, the pt underwent a
surgical aortic valve replacement with a 25 mm bioprosthetic valve, with modified left atrial MAZE, and left atrial appendage exclusion with a 35 mm device. Patient tolerated the procedure well with no complications, and was transferred to the
CVICU postoperatively with Dialysis Patient Care Technician services consulted for additional management/recommendations.
Chronic conditions [place]NER: Hypertension, hyperlipidemia, DM type II, osteoarthritis, cluster headaches, history of A-fib, history of CVA/TIA, sleep apnea, IBS, aortic stenosis, diverticulosis, BPH
Impression:
#Severe aortic valve stenosis with functional bicuspid valve s/p surgical aortic valve replacement with 25 mm bioprosthetic valve (POD#0)
#Paroxysmal A-fib s/p modified left atrial maze + left atrial appendage exclusion with 35mm device (POD #0)
#Acute thrombocytopenia due to above
#DM type II c/b hyperglycemia (A1C: 6.2 on 10/08/2024)
#Mild linear scarring seen in the posteromedial left lower lobe (seen on CT TAVR 09/18/2024)
#Former tobacco smoker (66-dyrx-akvl history, quit August 2020)
#Hypertension
#Hyperlipidemia
#DM type II
#Sleep apnea
#IBS
#BPH
Plan:
Ventilator settings reviewed
FiO2 will be weaned to maintain SpO2 >90-94%
Minute ventilation will be adjusted
Arterial blood gases will be monitored
Spontaneous breathing trial will be attempted with hopeful extubation after anesthesia/sedation wear off
prn nebulized bronchodilators - not currently bronchospastic
Pulmonary artery catheter parameters will be followed
Pressors/antihypertensive/inotropes/diuretics will be provided as needed
Maintain MAP>65
Replete electrolytes with K>4, Mg>2
Monitor chest tube output (mediastinal chest tubes x 2)
Monitor hemoglobin
Monitor platelet count and coags
Transfuse blood products as needed to maintain Hb>7g/dL, plt>50k (given post-operative status)
CT surgery managing chest tubes
Monitor blood sugar to maintain euglycemia with goal BG 110-140
Insulin drip per protocol
Aspiration precautions
VAP prevention protocol
DVT prophylaxis
Early nutrition
Early mobilization
Critical care statement: A total of 41 minutes of critical care time was provided for this patient today. This includes management of ventilator, spontaneous breathing trial, arterial blood gases, pressors, of unstable vital signs, evaluation of the
patient at bedside, reviewing the patient's pertinent medical records including radiographs, microbiology, laboratory evaluations, and discussion with primary team and critical care nursing.
[2024-11-05 11:07] LABS: Glucose - Point of Care 170 mg/dl (70-99)
[2024-11-05 11:14] LABS: B.E. 0.3 mmol/L; Ionized Calcium 1.21 mMOL/L (1.15-1.33); O2 Saturation % 94.3 % (94-98); PCO2 45 mmHg (35-48); PO2 66 mmHg (83-108); Potassium 4.9 mMOL/L (3.5-5.1); Sodium 134 mMOL/L (136-145); pH 7.37 (7.35-7.45)
[2024-11-05 11:16] LABS: Mixed Venous O2 Saturation 71.7 %
[2024-11-05 11:18] LABS: B.E. - POC -0.2 mmol/L; Blood Urea Nitrogen - POC 12 mg/dl (3-120); Chloride - POC 108 mmol/L (96-111); Creatinine - POC 0.69 mg/dl (0.3-1.0); Glucose - POC 161 mg/dl (70-99); HCO3 - POC 26 mmol/L (21-28); Hematocrit - POC 43 % PCV (42-52); Hemodilution- POC Yes; Hemoglobin Calculated - POC 14.5; Ionized Calcium - POC 1.24 mmol/L (1.15-1.33); Lactate - POC 1.59 mmol/L (0.36-0.75); O2 Saturation %Calculated-POC 95.2 % (94-98); PCO2 - POC 48 mmHg (35-48); PO2 - POC 82 mmHg (83-108); Potassium - POC 5.3 mmol/L (3.5-5.1); Sodium - POC 142 mmol/L (136-145); Specimen Type - POC Arterial; pH - POC 7.35 (7.35-7.45)
[2024-11-05 11:21] LABS: Hematocrit 42.2 % (39.0-52.0); Hemoglobin 14.7 g/dL (13.0-18.0); Platelet Count 100 10^3/uL (130-400)
[2024-11-05 11:25] LABS: INR 1.37; PT 17.4 Sec (11.4-14.6)
[2024-11-05 11:26] LABS: APTT 35.1 Sec (23.4-35.0)
[2024-11-05 11:29] LABS: Blood Urea Nitrogen 12 mg/dl (9-20); Estimated Creatinine Clearance > 125 ml/min; Glucose 159 mg/dl (70-99); Magnesium 2.4 mg/dl (1.6-2.3)
[2024-11-05] MEDS: VENTOLIN NEBULES 2.5 MG INH (11:33)
[2024-11-05] MEDS: DILAUDID 0.5 MG IV (11:35)
[2024-11-05] MEDS: VERSED 0.5 MG IV (11:43)
[2024-11-05] MEDS: ANCEF 10 IV ×2 (11:43→11:44)
[2024-11-05] MEDS: NSS 500 IV (11:43)
--- NOTE | 2024-11-05 11:46 | CM ---
Chart reviewed. Patient is in the OR today. Patient is independent of ADLS, lives with his in a [address] ST, ramp access, 0 DME. Plan is for the patient to return home with CT Transitional RN. CM to follow
[2024-11-05 11:58] LABS: Glucose - Point of Care 181 mg/dl (70-99)
[2024-11-05] MEDS: LR 250 ML IV ×5 (11:58→16:22)
--- NOTE | 2024-11-05 12:00 | PTCARENOTE ---
CT MANDREL CLEANER notified of CT output 120ml last hour and CI 1.76. CT MANDREL CLEANER at bedside. Repeat H/H ordered, drawn, sent.
--- NOTE | 2024-11-05 12:30 | PTCARENOTE ---
CT HELICOPTER MECHANIC updated with CT output for last 30 mins (70mL). CT HELICOPTER MECHANIC at bedside. Tracking CT output q5mins. ACT obtained. DDAVP ordered, pharmacy made aware. Administered 250mL LR per CT HELICOPTER MECHANIC.
[2024-11-05 12:35] LABS: Hemoglobin 14.6 g/dL (13.0-18.0)
[2024-11-05 12:41] LABS: ACT-LR - POC 120 Seconds (116-155)
[2024-11-05 12:57] LABS: Glucose - Point of Care 154 mg/dl (70-99)
[2024-11-05] MEDS: DDAVP 58 MCG IV (13:00)
--- NOTE | 2024-11-05 13:00 | PTCARENOTE ---
DDAVP administered per orders. 500 LR bolus given per Dr. Morales. Dr. Morales and CT CLAIM APPROVER and PA at bedside. Aware of CI 1.24, CT output 150 last hour.
[2024-11-05 13:29] LABS: B.E. - POC -2.1 mmol/L; Blood Urea Nitrogen - POC 12 mg/dl (3-120); Chloride - POC 110 mmol/L (96-111); Creatinine - POC 0.73 mg/dl (0.3-1.0); Glucose - POC 144 mg/dl (70-99); HCO3 - POC 23 mmol/L (21-28); Hematocrit - POC 39 % PCV (42-52); Hemodilution- POC Yes; Hemoglobin Calculated - POC 13.4; Ionized Calcium - POC 1.23 mmol/L (1.15-1.33); Lactate - POC 2.51 mmol/L (0.36-0.75); O2 Saturation %Calculated-POC 99.4 % (94-98); PCO2 - POC 42 mmHg (35-48); PO2 - POC 164 mmHg (83-108); Potassium - POC 4.2 mmol/L (3.5-5.1); Sodium - POC 142 mmol/L (136-145); Specimen Type - POC Arterial; pH - POC 7.36 (7.35-7.45)
--- NOTE | 2024-11-05 13:58 | PTCARENOTE ---
1unit platelet ordered, administered in entirety. Dr. Morales at bedside. aware of CT output last hour, 155ml. CI 1.72. LR @ 100mL/hr ordered and infusing,
--- NOTE | 2024-11-05 14:32 | PTCARENOTE ---
4mg Factor [address] Morales, Pharmacy at bedside to mix. Administered per orders.
--- NOTE | 2024-11-05 15:00 | PTCARENOTE ---
Dr. Morales and CT VAPOR COATER aware of slower CT output and CI 1.54. Additional 250mL LR bolus given per orders.
[2024-11-05 15:07] LABS: Glucose - Point of Care 137 mg/dl (70-99)
[2024-11-05 15:36] LABS: Glucose - Point of Care 125 mg/dl (70-99)
--- NOTE | 2024-11-05 15:40 | PTCARENOTE ---
Addendum entered by Nancy Rodriguez RN 11/05/24 17:19:
Pt opens eyes spontaneously. Shakes head appropriately, squeezes hands, wiggles toes. RT notified to place pt on cpap trial.
Original Note:
Attempted Cpap trial, pt apenic, resumed SIMV settings at 1600. Precedex titrated down.
[2024-11-05 15:58] LABS: Glucose - Point of Care 123 mg/dl (70-99)
--- NOTE | 2024-11-05 16:00 | PTCARENOTE ---
CT COMMUNITY RELATIONS POLICE LIEUTENANT notified of CI 0.85, MVO2 drawn and sent. Albumin ordered and administered. Repeat CI 1.52. Additional Albumin ordered and administered.
[2024-11-05] MEDS: TORADOL IV (16:14)
[2024-11-05] MEDS: TYLENOL PO (16:15)
[2024-11-05] MEDS: LR 1000 IV (16:15)
[2024-11-05] MEDS: NovoSeven RT (RECOMBINANT) 4 MG IV (16:15)
[2024-11-05] MEDS: PACERONE PO ×2 (16:16→23:09)
[2024-11-05] MEDS: ALBUMIN 5% 250 IV ×2 (16:16→16:37)
--- NOTE | 2024-11-05 16:26 | CON.CAR ---
Addendum entered and electronically signed by Karri Perez MD 11/05/24 16:46:
Agree with KYLE Krishna's note and assessment
Agree with KYLE Krishna's plan
Seen and examined at the bedside
Exam:
Intubated and sedated
Lines and tubes as noted
Right IJ cordis
Right [place]
Sternum intact
Cor regular no murmur
Lungs diminished
Trace extremity edema
Assessment:
Progressive, severe bicuspid aortic valve stenosis s/p surgical AVR with bioprosthetic valve, maze, left atrial appendage clip 11/05/2024
Very mild nonobstructive CAD by cardiac catheterization
Paroxysmal atrial fibrillation status post ablation 2020
Hypertension
Hyperlipidemia
DM2
Anxiety
Former tobacco use, recently quit
Daily alcohol use
Echocardiogram at OSH 08/06/2024: EF 55 to 60%, peak/mean gradients 92/56 mmHg, mild to moderate AR, functionally bicuspid aortic valve with RCC and LCC calcification, mild to moderate AI
Plan:
- Patient underwent surgical AVR with bioprosthetic valve, maze, left atrial appendage clip 11/05/2024
- Remains intubated, sedated
- Noted to be somewhat oozy and hypotensive immediately postop. Improving status post DDAVP and 1 L of IV fluid
- hgb 13.4, plts 117K. follow.
- On levo at 5, insulin at 3.5. wean as able
- CI 1.83
- EKG SB with prolonged QTc, repeat EKG in AM
- Preoperatively was not on anticoagulation per primary welder production line combination due to low burden post ablation in 2020, however [id number] score of 4 for age, HTN, DM2, vascular disease. would recommend OAC if has any post op afib.
- d/w nursing, CT surgery REPROGRAPHICS ASSOCIATE/PA
Original Note:
Consultation
Consultation Request
Date/Time Consultation Performed: 11/05/24
Requesting Provider: Dr. Morales
Performing Provider: Remedios Krishna PA-C for Dr. Karri Perez
Reason for Consultation: post AVR mgmt
Medical History
-
Chief Complaint: severe bicuspid
History of Present Illness:
Patient is a 69-year-old male with past medical history of hypertension, hyperlipidemia, anxiety, paroxysmal atrial fibrillation status post ablation in 2020, DM 2, former tobacco use (recently quit) with progressive severe bicuspid aortic valve
stenosis who presented today for aortic valve surgery with Dr. Morales. He underwent surgical AVR with bioprosthetic valve, maze, left atrial appendage clip 11/05/2024. He had cardiac catheterization preoperatively which showed very mild
nonobstructive coronary disease. He remains intubated and sedated. Cardiology consulted for postoperative management. His primary welder production line combination is Dr. Desmond Perez of [facility].
PMH:
Progressive bicuspid aortic valve stenosis
Very mild nonobstructive CAD by cardiac catheterization
Paroxysmal atrial fibrillation status post ablation 2020
Hypertension
Hyperlipidemia
DM2
Anxiety
Former tobacco use, recently quit
Daily alcohol use
Past Medical History
Past Medical History: Other (in HPI)
Social History
Tobacco: Former Smoker
Alcohol: Daily
Personal:
Living: With Family
Employment: Retired
Family History
Family History: CAD and Other (CHF)
Allergies / Home Medications
Allergy/AdvReac Type Severity Reaction Status Date / Time
pollen extracts Allergy seasonal Verified 10/07/24 10:10
allergies
�Medication �Instructions �Recorded �Confirmed �Type
empagliflozin 25 mg tablet 25 mg PO DAILY Heart 08/24/20 11/05/24 History
(Jardiance) Disease/Condition
losartan 100 mg tablet 100 mg PO DAILY Blood Pressure 08/24/20 11/05/24 History
metformin 1,000 mg tablet 1,000 mg PO BID Diabetes 08/24/20 11/05/24 History
omega-3 acid ethyl esters 1 gram 2 gm PO BID Supplement 08/24/20 11/05/24 History
capsule (Lovaza)
sertraline 50 mg tablet 50 mg PO DAILY Mental 08/24/20 11/05/24 History
Health/Anxiety
tamsulosin 0.4 mg capsule 0.4 mg PO DAILY Urinary Issue 08/24/20 11/05/24 History
Lactobacillus 40-Bifidobact 1 cap PO DAILY Gastrointestinal 09/03/24 11/05/24 History
3-S.thermophilus 100 billion cell Issue
capsule (Probiotic)
aspirin 81 mg capsule 81 mg PO DAILY Blood Clot 09/03/24 11/05/24 History
Prevention/Tx
cholecalciferol (vitamin D3) 50 50 mcg PO DAILY Supplement 09/03/24 11/05/24 History
mcg (2,000 unit) capsule (Vitamin
D3)
propranolol 160 mg capsule,24 160 mg PO DAILY Blood Pressure 09/03/24 11/05/24 History
hr,extended release
propranolol 80 mg capsule,24 80 mg PO DAILY Blood Pressure 09/03/24 11/05/24 History
hr,extended release
zinc acetate 50 mg (zinc) capsule 50 mg PO DAILY Supplement 09/03/24 11/05/24 History
ascorbic acid (vitamin C) 1,000 mg 1,000 mg PO DAILY Supplement 10/07/24 11/05/24 History
tablet (Vitamin C)
fexofenadine 180 mg tablet 180 mg PO DAILY Allergies 10/07/24 11/05/24 History
fluticasone propionate 50 1 spray intranasal DAILY Allergies 10/07/24 11/05/24 History
mcg/actuation nasal
spray,suspension
magnesium 500 mg PO DAILY Electrolyte 10/07/24 11/05/24 History
Repletion
pwiwypouetrl-bndfohix-vuuufy 1 tab PO DAILY Supplement 10/07/24 11/05/24 History
tablet (Multivitamin 50 Plus
tablet)
rosuvastatin 20 mg tablet 20 mg PO DAILY High Cholesterol 10/07/24 11/05/24 History
Review of Systems
-
Unable to obtain full review of systems at this time due to: Patient Intubation
Physical Exam
Vital Signs
Temp Pulse Resp BP Pulse Ox
97.7 F 53 9 107/59 98
11/05/24 16:00 11/05/24 16:00 11/05/24 16:00 11/05/24 16:00 11/05/24 16:00
Lab Results
11/05/24 11:04
Physical Exam
General: Comfortable and Intubated
HEENT: Normocephalic and Moist Mucous Membranes
Respiratory: Clear and Non Labored Respirations
Cardiac: S1/S2 and Regular Rhythm
GI: Soft, Non Tender and Non Distended
Musculoskeletal: No Clubbing, No Cyanosis and No Edema
Skin: Warm, Dry and Other (Sternotomy incision c/d/i. CTs in place)
Neuro: Sedated
Impression / Plan
-
Primary Assistant Broker: Dr. Perez of [facility]
Assessment:
Progressive, severe bicuspid aortic valve stenosis s/p surgical AVR with bioprosthetic valve, maze, left atrial appendage clip 11/05/2024
Very mild nonobstructive CAD by cardiac catheterization
Paroxysmal atrial fibrillation status post ablation 2020
Hypertension
Hyperlipidemia
DM2
Anxiety
Former tobacco use, recently quit
Daily alcohol use
Echocardiogram at OSH 08/06/2024: EF 55 to 60%, peak/mean gradients 92/56 mmHg, mild to moderate AR, functionally bicuspid aortic valve with RCC and LCC calcification, mild to moderate AI
Plan:
- Patient underwent surgical AVR with bioprosthetic valve, maze, left atrial appendage clip 11/05/2024
- Remains intubated, sedated
- Noted to be somewhat oozy and hypotensive immediately postop. Improving status post DDAVP and 1 L of IV fluid
- hgb 13.4, plts 117K. follow.
- On levo at 5, insulin at 3.5. wean as able
- CI 1.83
- EKG SB with prolonged QTc, repeat EKG in AM
- Preoperatively was not on anticoagulation per primary welder production line combination due to low burden post ablation in 2020, however [id number] score of 4 for age, HTN, DM2, vascular disease. would recommend OAC if has any post op afib.
- continue post op care
- OP follow up with ATC
- d/w nursing, CT surgery REPROGRAPHICS ASSOCIATE/PA
Data Reviewed
-
EKG: Tracing Personally Visualized and interpreted
Medical Tests (Nuc Med, Echo etc): Report Reviewed by me
Labs: Labs Reviewed by me
Old Records: Reviewed
[2024-11-05 16:30] LABS: Mixed Venous O2 Saturation 60.2 %
[2024-11-05 16:32] LABS: Hematocrit 37.3 % (39.0-52.0); Hemoglobin 13.4 g/dL (13.0-18.0); Platelet Count 117 10^3/uL (130-400)
--- NOTE | 2024-11-05 16:53 | PTCARENOTE ---
Pt initiating more breaths over the vent. RT notified and pt placed on cpap trial #2. Pt tolerating PoX 100%.
[2024-11-05 17:28] LABS: Blood Urea Nitrogen - POC 14 mg/dl (3-120); Chloride - POC 111 mmol/L (96-111); Creatinine - POC 0.71 mg/dl (0.3-1.0); Glucose - POC 118 mg/dl (70-99); HCO3 - POC 22 mmol/L (21-28); Hematocrit - POC 35 % PCV (42-52); Hemodilution- POC Yes; Ionized Calcium - POC 1.17 mmol/L (1.15-1.33); O2 Saturation %Calculated-POC 98.7 % (94-98); PCO2 - POC 27 mmHg (35-48); PO2 - POC 105 mmHg (83-108); Potassium - POC 4.1 mmol/L (3.5-5.1); Sodium - POC 142 mmol/L (136-145); Specimen Type - POC Arterial; pH - POC 7.51 (7.35-7.45)
--- NOTE | 2024-11-05 17:30 | PTCARENOTE ---
Addendum entered by Nancy Rodriguez RN 11/05/24 18:35:
Per CT AIR TUBE RELEASER, do not replace Calcium.
Original Note:
Pt extubated to 6L NC by RT. Pt able to state name and . IS completed to 2000mL. Pt resting.
[2024-11-05] MEDS: TORADOL 15 MG IV (17:32)
[2024-11-05] MEDS: ANCEF 5 IV (17:33)
--- NOTE | 2024-11-05 17:35 | RESPNOTE ---
Patient extubated to a 6L nasal cannula following cpap trial and Abg. Incentive spirometry re-instruction completed
--- NOTE | 2024-11-05 17:45 | PTCARENOTE ---
Pt bathed with CHG wipes. Turned from side to side, new linens applied. No significant dumps from CTs.
--- NOTE | 2024-11-05 18:00 | PTCARENOTE ---
Pt resting in bed. Requesting medications for anxiety, CT PRODUCTION MECHANIC notified, precedex initiated at 0.1 for comfort. SB with prolonged QT with rates 50s-60s. BP controlled with Nitro at 150mcg/min, CT PRODUCTION MECHANIC notified. CI 2.05. PA pressures 20s/10s. CVP 4. POX
96% on 6L NC. CT output now 25ml/hr. UO adequate. No air leaks, tidaling, crepitus in CT. Pt alert and oriented x4. Medicated for pain. Denies nausea. Insulin gtt maintained.
[2024-11-05 18:12] LABS: Glucose - Point of Care 123 mg/dl (70-99)
[2024-11-05] MEDS: FLEXERIL 5 MG PO (18:14)
[2024-11-05] MEDS: NORVASC 5 MG PO (18:14)
--- NOTE | 2024-11-05 18:39 | DOWNTIME ---
There was a [employer] Client Technical Marketing Consultant Downtime on 11/05/2024 from 1230 to 11/05/2024 at 1550. Downtime documentation of patient's care, including medication administrations, has been reconciled in the electronic record per guidelines. Refer to the
patient's paper chart under the miscellaneous tab to see printed paper medication records and downtime forms.
[2024-11-05] MEDS: ZOFRAN 4 MG IV (18:42)
--- NOTE | 2024-11-05 20:00 | PTCARENOTE ---
assumed care of pt from previous RN. pt A&Ox4, bedrest s/p CVOR. R IJ cordis w/ swan floated to 52cm. L radial a-line. all lines leveled, zeroed, flushed. SB/SR on tele-monitor. temp epicardial v-wires, plugged into pulse generator, off. CTx2
(mediastinal x2) to -20cm wall suction, draining sanguineous drainage. POX 99% on 6 L NC. abd s/n, hypoactive BS. jain catheter draining miguelina colored urine. all surgical sites stable, CDI. PIV intact. plan of care discussed w/ pt, pt in agreement.
see worklist for complete nursing assessment, interventions, gtt titrations, VS, and I&Os.
[2024-11-05] MEDS: SENOKOT-S 1 TABLET PO (20:06)
[2024-11-05] MEDS: DILAUDID 0.25 MG IV (20:06)
[2024-11-05 20:07] LABS: Glucose - Point of Care 124 mg/dl (70-99)
[2024-11-05 21:07] LABS: Glucose - Point of Care 119 mg/dl (70-99)
[2024-11-05] MEDS: TYLENOL 1000 MG PO (22:04)
[2024-11-05] MEDS: NEURONTIN 100 MG PO (22:04)
[2024-11-05] MEDS: ROXICODONE 5 MG PO (22:05)
[2024-11-05 22:11] LABS: Glucose - Point of Care 119 mg/dl (70-99)
[2024-11-05 23:08] LABS: Glucose - Point of Care 122 mg/dl (70-99)
[2024-11-06] VITALS (36 sets, daily range): BP systolic 88–132; BP diastolic 47–71; PULSE 60; O2SAT 96; BMI 30.3
--- NOTE | 2024-11-06 | PTCARENOTE ---
assessment remains unchanged. VSS. CT drainage WNL. U/O <0.5ml/kg/h. CT PA aware. see worklist for gtt titrations, VS, and I&Os.
[2024-11-06 00:01] LABS: Glucose - Point of Care 122 mg/dl (70-99)
[2024-11-06] MEDS: TORADOL 15 MG IV (00:05)
[2024-11-06] MEDS: NITROGLYCERIN PREMIX 250 IV ×2 (00:24→07:46)
[2024-11-06] MEDS: DILAUDID 0.25 MG IV (00:31)
[2024-11-06] MEDS: APRESOLINE 5 MG IV (00:31)
[2024-11-06] MEDS: ROXICODONE 5 MG PO ×5 (02:03→21:47)
[2024-11-06 02:04] LABS: Glucose - Point of Care 115 mg/dl (70-99)
[2024-11-06] MEDS: ANCEF 5 IV ×2 (02:08→09:57)
[2024-11-06] MEDS: NOVOLIN R INSULIN INFUSION 100 IV ×2 (03:03→23:35)
[2024-11-06] MEDS: CARDENE 200 IV ×4 (03:06→18:58)
[2024-11-06 03:49] LABS: Glucose - Point of Care 84 mg/dl (70-99)
[2024-11-06] MEDS: APRESOLINE 10 MG IV (03:50)
[2024-11-06] MEDS: FLOMAX 0.4 MG PO (03:51)
[2024-11-06 04:01] LABS: Hematocrit 33.8 % (39.0-52.0); Mean Corp Hgb Conc. 35.5 g/dL (33.0-37.0); Mean Corpuscular Hgb 31.7 pg (27.0-31.0); Mean Corpuscular Volume 89.4 fL (80.0-94.0); Mean Platelet Volume 11.3 fL (7.4-10.4); Platelet Count 104 10^3/uL (130-400); Red Blood Cell Count 3.78 10^6/uL (4.70-6.10); Red Cell Dist. Width 12.5 % (11.5-14.5)
[2024-11-06 04:13] LABS: Blood Urea Nitrogen 17 mg/dl (9-20); Calcium 8.4 mg/dl (8.4-10.2); Carbon Dioxide 22 mmol/L (22-30); Chloride 113 mmol/L (98-107); Estimated Creatinine Clearance > 125 ml/min; Glucose 113 mg/dl (70-99); Magnesium 1.8 mg/dl (1.6-2.3); Potassium 4.1 mmol/L (3.5-5.1); Sodium 139 mmol/L (135-145); eGFR > 60.00
[2024-11-06] MEDS: ATIVAN 0.5 MG IV (04:20)
[2024-11-06] MEDS: NSS (PRESERVATIVE FREE) 0.25 ML IV (04:20)
[2024-11-06] MEDS: TYLENOL 1000 MG PO ×3 (04:30→21:21)
[2024-11-06] MEDS: FLEXERIL 5 MG PO ×2 (04:30→12:49)
--- NOTE | 2024-11-06 04:30 | PTCARENOTE ---
no acute changes. AM labs collected and sent. EKG completed. pain management, see MAR. Ativan given for anxiety. see worklist for gtt titrations, VS, and I&Os.
--- NOTE | 2024-11-06 05:30 | W.PN.CT ---
Today's Communication / Plan
-
-pod #1
-hypertensive postop- required high dose iv Nitro and iv Cardene, got 5 po Norvasc and iv Hydralazine x2. Started 5 po Norvasc qd, consider restarting Losartan. Continue BB
-hypovolemia postop - got total 2L LR and 500 Albumin
-anxious- better with Ativan x1
-CI 2.90, CO 6.93. Drips: Nitro 200, Cardene 7.5, 1 L of LR @ 100/hr (completed), Insulin
-CT output: 2 meds 150/770 in 12/24 hrs
-deline
-d/c Malika (gave Flomax early this am for BPH)
-follow Qt, especially when on Amio and back on Zoloft
-encourage IS, OOB
Assessment / Plan
-
- Severe symptomatic aortic valve stenosis with functional bicuspid valve- s/p Surgical aortic valve replacement [25 mm Parikh Inspiris Resilia bioprosthetic valve]; Modified left atrial maze [posterior wall isolation using the encompass clamp];
Left atrial appendage exclusion [35 mm device]; Sternal plating by Dr. Morales on 11/05/24, pod #1
- Intraop PORFIRIO: LVEF was 60% preop and 60-65% postop with no new regional wma. RV size and function are both normal. He did have a moderate degree of left ventricular hypertrophy. After coming off cardiopulmonary bypass, there was no paravalvular
leaks, his mean gradient across the new valve while slightly hyperdynamic was approximately 8 mmHg, all leaflets with normal excursion.
- Severe aortic valve stenosis, Bicuspid aortic valve with left right fusion, type II
- Hypertension
- Hyperlipidemia
- Diabetes type 2
- Paroxysmal atrial fibrillation - s/p ablation 2020, DCCV x4
- History of CVA/TIA
- KAYODE
- IBS
- BPH
- Rotator cuff surgery
- Former smoker, quit 2020
- Acute postop thrombocytopenia/coagulopathy - s/p 1 unit platelet, DDAVP and Factor 7
- Acute postop pulmonary insufficiency - resolved
- Acute postop atelectasis
- Acute postop long Qt - monitor
- Acute on chronic postop hypertension - got 5 mg Norvasc, iv Hydralazine x1, required high dose iv Nitro and Cardene
- Acute postop hypovolemia with subsequent hypervolemia (got 2L of LR and 500 Albumin total)
Discussed patient care with: Nursing and Care Team
Subjective
-
Date of Service: November 06, 2024
Objective Data
-
PT 17.4 Sec (11.4-14.6) H 11/05/24 11:04
INR 1.37 11/05/24 11:04
APTT 35.1 Sec (23.4-35.0) H 11/05/24 11:04
Vital Signs
Vital Signs
Temp Pulse Resp BP Pulse Ox
97.6 F 51 12 90/60 98
11/06/24 00:00 11/06/24 00:00 11/06/24 00:00 11/06/24 00:00 11/06/24 00:00
CT Intake/Output/Weight
11/05/24 11/05/24 11/06/24
06:59 18:59 06:59
Intake Total 3088.5 / 3838.9 750.4 / 3838.9
Output Total 1110 / 1330 220 / 1330
Balance 1978.5 / 2508.9 530.4 / 2508.9
SaO2: 98
Physical Exam
-
General: Awake and AOx3
Cardiovascular: Regular rate & rhythm, No Murmurs and No Rub
Respiratory: Decreased Breath Sounds
Sternum: Stable
Incision: Clean, Dry and Intact
Extremities: No Edema (2+ DPs b/l)
Abdomen: soft, nontender, nondistended, +decreased bowel sounds
Data Reviewed
-
Lab Results: Results Reviewed
Medications: Active Meds Reviewed
Chest X-Ray: Report Reviewed and Image Reviewed
ECG: Report Reviewed and Image Reviewed
[2024-11-06 05:52] LABS: Glucose - Point of Care 172 mg/dl (70-99)
[2024-11-06] MEDS: LIDOCAINE 4% PATCH 1 PATCH TOPICAL (07:46)
[2024-11-06] MEDS: PROTONIX 40 MG PO (07:47)
[2024-11-06] MEDS: MAGNESIUM OXIDE 500 MG PO ×2 (07:47→19:52)
[2024-11-06] MEDS: CRESTOR 20 MG PO (07:47)
[2024-11-06] MEDS: ZOLOFT 50 MG PO (07:47)
[2024-11-06] MEDS: PACERONE 200 MG PO ×3 (07:47→21:21)
[2024-11-06] MEDS: SENOKOT-S 1 TABLET PO ×2 (07:47→19:52)
[2024-11-06] MEDS: THERAGRAN 1 TABLET PO (07:47)
[2024-11-06] MEDS: NORVASC 5 MG PO (07:47)
[2024-11-06] MEDS: NEURONTIN 100 MG PO ×3 (07:47→21:22)
[2024-11-06] MEDS: LOW STRENGTH ASPIRIN 81 MG PO (07:47)
[2024-11-06] MEDS: BACTROBAN 2% OINTMENT 1 APPLIC NASAL ×2 (07:48→19:51)
[2024-11-06 07:59] LABS: Glucose - Point of Care 148 mg/dl (70-99)
--- NOTE | 2024-11-06 08:00 | PTCARENOTE ---
Resumed care of patient. Walking rounds completed with previous RN. Pt assessed while he was sitting in the chair. Pt alert and oriented x4. BANG with equal strength throughout. Able to stand with 1 assist. Rates sternal pain 5/10. Denies shortness
of breath, and nausea. +anxiety, CT INSURANCE MARKETING SPECIALIST notified. SR with prolonged QT with rates in the 60s. BP controlled with Nitro and Cardene gtts. Heart tones audible. Bilateral radial and DP pulses palpable. No edema noted. Epicardial v-wire set to 40/7/0.8,
thresholds completed. POX 97% on RA. Lungs clear throughout. IS encouraged, 2000mL achieved. Mediastinal chest tubes x2 y-sited to 1 atrium to -20cm suction draining dark red fluid. No air leaks, tidaling, crepitus noted. Abdomen soft, round,
nontender. Hypoactive BS. Due to void post jain removal, denies urge to void at this time. Sternal incision approximated with skin glue, RAMANDEEP. Right IJ cordis infusing Nitro, Cardene, and NSS. Right forearm 18g PIV intact. Left radial tavo intact,
leveled, zeroed, flushed. See MAR for medication administration. See worklist for complete nursing assessment. Plan of care reviewed and patient in agreement.
--- NOTE | 2024-11-06 08:15 | W.PN.ANS.POP ---
Anesthesia Post Operative
- Anesthesia Post Op Note
Vital Signs Stable-See Nursing Note: Yes (remains on NTG and cardene drips)
Airway Patent: Yes
Adequate Pain Control: Yes
Change in Mental Status: No
Current Postoperative Nausea & Vomiting: No
Anesthesia Complications: No
General Anesthetic Recall: No
Unplanned Admission: No
Post Op Hydration Adequate: Yes
[2024-11-06] MEDS: FLEXBUMIN 50 IV (08:17)
[2024-11-06] MEDS: COZAAR 50 MG PO ×2 (08:18→16:04)
[2024-11-06] MEDS: LOPRESSOR 12.5 MG PO (08:18)
--- NOTE | 2024-11-06 08:24 | W.PN.INTV ---
Today's Communication / Plan
Recommendations
Up OOB as tolerated
Pain control
Encourage incentive parameter use
Wean off Cardene drip and nitroglycerin drip as per CT surgery team
Continue insulin drip with goal BG 110�140, weaning off insulin per protocol
Supply Chain Procurement Manager services will continue to follow along until patient has been removed from insulin drip, nitroglycerin as well as Cardene drips. Once transferred to CVICU�telemetry status then we will sign off at that time.
Assessment
-
Assessment: 69-year-old male with a past medical history of aortic valve stenosis, paroxysmal A-fib, hypertension, hyperlipidemia, DM type II, history of CVA/TIA, sleep apnea, IBS, diverticulosis and BPH who presents for elective surgical aortic
valve replacement. Patient known to cardiothoracic surgery service with last visit 10/06/[address] Morales. Patient has history of aortic stenosis dating back as far as August 2020 which was moderate at that time with a peak/mean gradient of 39/26
with an JM of 1.2 cm�. Most recent echo in July 2024 showed a peak/mean gradient of 92/56 mmHg respectively with an JM of 0.1 cm�. He has known bicuspid morphology with right left fusion. Left heart catheterization on 09/03/2024 showed very
mild nonobstructive CAD with severe aortic valvular stenosis. Cardiothoracic intervention was discussed as he has been more short of breath especially with inclines. Patient agreed to aortic valve replacement, and on 11/05/2024, the pt underwent a
surgical aortic valve replacement with a 25 mm bioprosthetic valve, with modified left atrial MAZE, and left atrial appendage exclusion with a 35 mm device. Patient tolerated the procedure well with no complications, and was transferred to the
CVICU postoperatively with Supply Chain Procurement Manager services consulted for additional management/recommendations.
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
Impression:
#Severe aortic valve stenosis with functional bicuspid valve s/p surgical aortic valve replacement with 25 mm bioprosthetic valve (POD#1)
#Paroxysmal A-fib s/p modified left atrial maze + left atrial appendage exclusion with 35mm device (POD #1)
#Acute thrombocytopenia due to above
#DM type II c/b hyperglycemia (A1C: 6.2 on 10/08/2024)
#Mild linear scarring seen in the posteromedial left lower lobe (seen on CT TAVR 09/18/2024)
#Former tobacco smoker ([id number] history, quit August 2020)
#Hypertension
#Hyperlipidemia
#DM type II
#Sleep apnea
#IBS
#BPH
Plan:
Patient successfully extubated on 11/05 to nasal cannula, and is currently on room air saturating 95% and breathing comfortably
Maintain SpO2 >90-94%
prn nebulized bronchodilators - not currently bronchospastic
Encourage incentive spirometer use q1hr while awake
Pressors/antihypertensive/inotropes/diuretics will be provided as needed
Maintain MAP>65
Replete electrolytes with K>4, Mg>2
Monitor chest tube output (mediastinal chest tubes x 2)
Monitor hemoglobin
Monitor platelet count and coags
Transfuse blood products as needed to maintain Hb>7g/dL, plt>50k (given post-operative status)
CT surgery managing chest tubes
Monitor blood sugar to maintain euglycemia with goal BG 110-140
Insulin drip per protocol
Aspiration precautions
DVT prophylaxis
Early nutrition
Early mobilization
Supply Chain Procurement Manager services will continue to follow along until patient has been removed from insulin drip, nitroglycerin as well as Cardene drips. Once transferred to CVICU�telemetry status then we will sign off at that time.
Critical care statement: A total of 38 minutes of critical care time was provided for this patient today. This includes management of ventilator, spontaneous breathing trial, arterial blood gases, pressors, of unstable vital signs, evaluation of the
patient at bedside, reviewing the patient's pertinent medical records including radiographs, microbiology, laboratory evaluations, and discussion with primary team and critical care nursing.
Subjective Dataa
Subjective Data
Date of Service:
Date of Service: November 06, 2024
Chief Complaint: Supply Chain Procurement Manager Follow Up
Subjective:
Patient seen and evaluated today at bedside. Resting in bed in no acute distress, on room air saturating 95% with heart rate 60 and BP 144/48 via A-line. Currently on Cardene at 7.5 mg/h, nitroglycerin at 20 mcg/min and insulin drip at 1.1
units/hr. Mediastinal chest tubes x [address]. He currently denies CALDERON, nausea, fevers or chills.
Review of Systems
General: Other (Negative unless mentioned above)
Objective Data
Data Reviewed
Vital Signs / I&O / Oxygen:
Vital Signs
Temp Pulse Resp BP Pulse Ox
97.8 F 60 16 95/60 96
11/06/24 08:00 11/06/24 09:30 11/06/24 09:30 11/06/24 09:00 11/06/24 09:30
Intake and Output
11/05/24 11/06/24 11/07/24
06:59 06:59 06:59
Intake Total 4351.0 / 4435.5 217.0 / 217.0
Output Total 1565 / 1585
Balance 2786.0 / 2850.5 197.0 / 197.0
SaO2 [CPAP/PSV] 99
SaO2 [SIMV] 100
SaO2 96
Nasal Cannula flow liters per 2
minute
Physical Exam
General: Respiratory Distress (negative), Comfortable, Chills (negative) and Sweats (negative)
HEENT: Normocephalic, Anicteric and Other (R-IJ cordis in place)
Cardiovascular: S1-S2 and Peripheral Edema (negative)
Respiratory: Clear, Wheeze (negative), Crackles (negative), Rhonchi (negative) and Non-Labored Respirations
GI: Soft, Distended (Abdominal obesity), Non Tender and Normal Bowel Sounds
Neurology: AO x 3 and Tremors (negative)
Skin: Warm, Dry, Cyanosis (negative) and Jaundice (negative)
Labs/Micro/Reports
Lab Data
11/06/24 03:45
11/06/24 03:45
Laboratory Results
11/05/24
11:04
PT 17.4 H
INR 1.37
APTT 35.1 H
pH 7.37
pCO2 45
pO2 66 L
HCO3 26.0
O2 Delivery Level Not Reportable
Microbiology
11/05/24 07:30 Urine Urine Culture - Final
NO GROWTH
[2024-11-06] MEDS: NOVOLOG FLEXPEN 4 UNITS SC ×3 (09:01→17:45)
[2024-11-06 09:51] LABS: Glucose - Point of Care 161 mg/dl (70-99)
[2024-11-06] MEDS: NSS IV (09:58)
--- NOTE | 2024-11-06 10:49 | W.PN.CARDCBS ---
Addendum entered and electronically signed by Brooklynn Fields MD 11/06/24 11:31:
I saw and examined the patient.
The Drop Press Hand's note was reviewed and I agree with the note.
Comment: Exam stable. Patient sitting in chair. Working on pain control.
Patient underwent surgical AVR with bioprosthetic valve, maze, left atrial appendage clip 11/05/2024. Continue usual post op care
Blood pressure improved. He was hypertensive initially overnight. Currently on Cardene drip which is being weaned. Oral medications started as noted. Continue to monitor.
EKG initially with prolonged QT. EKG 11/06 reviewed, QTc improving compared to 11/05.Follow and avoid QT prolonging medications.
Tele stable, follow.
Original Note:
Today's Communication / Plan
-
continue post op care
HTN mgmt
Impression / Plan
-
Primary Cardroom Supervisor: Dr. Perez of [facility]
Assessment:
Progressive, severe bicuspid aortic valve stenosis s/p surgical AVR with bioprosthetic valve, maze, left atrial appendage clip 11/05/2024
Very mild nonobstructive CAD by cardiac catheterization
Paroxysmal atrial fibrillation status post ablation 2020
Hypertension
Hyperlipidemia
DM2
Anxiety
Former tobacco use, recently quit
Daily alcohol use
Echocardiogram at OSH 08/06/2024: EF 55 to 60%, peak/mean gradients 92/56 mmHg, mild to moderate AR, functionally bicuspid aortic valve with RCC and LCC calcification, mild to moderate AI
Plan:
- Patient underwent surgical AVR with bioprosthetic valve, maze, left atrial appendage clip 11/05/2024
- noted to be hypertensive overnight. currently requiring cardene@7.5, IV nitro gtt @100. weaning. was given cozaar 50mg, norvasc 5mg, lopressor 12.5mg this AM. was taking 100mg daily prior to admission. was also on high doses of propranolol prior
to admission. uptitrate BB as needed for BP control
- continue asa. hgb 12, plts 104K.
- EKG 11/06 reviewed, QTc improving compared to 11/05.
- In SR on review of tele overnight. Preoperatively was not on anticoagulation per primary clinical lab scientist due to low burden post ablation in 2020, however [id number] score of 4 for age, HTN, DM2, vascular disease. would recommend OAC if has any post
op afib.
- continue post op care
- OP follow up with ATC
- d/w nursing, CT surgery ELDERLY SITTER/PA
Progress Note - Cardroom Supervisor
Subjective
Date of Service: November 06, 2024
reports pain adequately controlled and breathing ok. states his buttocks hurts from the chair even after placement of pillow.
Objective
Labs:
11/06/24 03:45
11/06/24 03:45
Labs
Hgb 12.0 g/dL (13.0-18.0) L 11/06/24 03:45
Hct 33.8 % (39.0-52.0) L 11/06/24 03:45
Plt Count 104 10^3/uL (130-400) L 11/06/24 03:45
PT 17.4 Sec (11.4-14.6) H 11/05/24 11:04
INR 1.37 11/05/24 11:04
APTT 35.1 Sec (23.4-35.0) H 11/05/24 11:04
Sodium 139 mmol/L (135-145) 11/06/24 03:45
Potassium 4.1 mmol/L (3.5-5.1) 11/06/24 03:45
BUN 17 mg/dl (9-20) 11/06/24 03:45
Creatinine 0.6 mg/dL (0.7-1.3) L 11/06/24 03:45
Glucose 113 mg/dl (70-99) H 11/06/24 03:45
Vital Signs and I&O:
Vital Signs
Temp Pulse Resp BP Pulse Ox
97.8 F 59 15 107/61 96
11/06/24 08:00 11/06/24 10:00 11/06/24 10:00 11/06/24 10:00 11/06/24 10:00
Vital Signs
Temp Pulse Resp BP Pulse Ox
97.8 F 59 15 107/61 96
11/06/24 08:00 11/06/24 10:00 11/06/24 10:00 11/06/24 10:00 11/06/24 10:00
Intake & Output
11/04/24 11/05/24 11/06/24 11/07/24
07:59 07:59 07:59 07:59
Intake Total 4435.5 / 4568.0 284.5 / 284.5
Output Total 1585 / 1585 45 / 45
Balance 2850.5 / 2983.0 239.5 / 239.5
Physical Exam
Physical Exam
GEN: No distress, awake, alert, oriented x3. sitting in chair
HEENT: supple, anicteric, mmm, eomi
LUNGS: Decreased BS B/L, no wheezes
CV: Reg, S1/S2, no murmur
ABD: soft, BS+, NT/ND
EXT: No cyanosis, clubbing. trace edema of B/L LE
NEURO: Gross non-focal
SKIN: Warm, pink, dry. No rash. Sternotomy incision c/d/i. CTs in place
--- NOTE | 2024-11-06 12:00 | PTCARENOTE ---
Pt reassessed. NSR on tele with rates in the 60s. BP controlled with nitro and cardene gtts. POX 97% on RA. CT output WNL. Surgical sites WNL. Pt sitting up in the chair eating lunch. Insulin gtt continues to infuse. Rates sternal pain 10-see MAR.
No other acute changes from previous assessment.
[2024-11-06 12:02] LABS: Glucose - Point of Care 95 mg/dl (70-99)
--- NOTE | 2024-11-06 12:29 | CM ---
Chart reviewed. Patient is independent of ADLS, lives with his in a 2 [address], ramp access, 0 DME. Plan is for the patient to return home. CM to follow
[2024-11-06] MEDS: FERRLECIT 110 MG IV (14:11)
[2024-11-06] MEDS: FOLVITE 1 MG PO (14:13)
[2024-11-06 14:19] LABS: Glucose - Point of Care 178 mg/dl (70-99)
--- NOTE | 2024-11-06 16:00 | PTCARENOTE ---
Pt reassessed. SR on tele with rates in the 60s. BP 108/62 via cuff. Cardene infusing at 7.5. pOX 95% on RA. Surgical sites stable. CT output WNL. Due to void, bladder scanned for 320ml. All lines intact. Pt resting in bed.
[2024-11-06 16:12] LABS: Glucose - Point of Care 125 mg/dl (70-99)
[2024-11-06 17:46] LABS: Glucose - Point of Care 97 mg/dl (70-99)
--- NOTE | 2024-11-06 19:45 | PTCARENOTE ---
Patient received from RN @1900. Patient sitting in chair w/ call noel in reach. AOx3 NSR BP 142/42 HR 62. Heart sounds audible. Radial and pedal pulses present. No edema noted. V-wires plugged into box w/ box turned off. IS 2500, Lung sounds
clear POX 98% RA. 2x mediastinal chest tubes set to wall suction -20 draining serosanguineous fluid. No crepitus, tidaling, or air leaks noted. Bowel sounds present. Sternal incision well approximated RAMANDEEP. CT dressing dry and intact. RIJ
cordis patent and intact. Left radial A-line zeroed and leveled. Right arm PIV patent and intact. Cardene and Insulin infusing per protocol.
[2024-11-06] MEDS: LOPRESSOR 25 MG PO (19:52)
[2024-11-06] MEDS: VITAMIN B1 100 MG PO (19:53)
[2024-11-06 20:06] LABS: Glucose - Point of Care 137 mg/dl (70-99)
[2024-11-06 22:00] LABS: Glucose - Point of Care 106 mg/dl (70-99)
--- NOTE | 2024-11-06 22:20 | PTCARENOTE ---
Patient yet to void. Bladder scan for 566mL CT KEVIN Byrne notified. Straight cath for 600mL.
[2024-11-07] VITALS (25 sets, daily range): BP systolic 106–134; BP diastolic 42–93; PULSE 58; O2SAT 98; BMI 31.0
--- NOTE | 2024-11-07 | PTCARENOTE ---
Patient reassessed. Sinus bradycardia w/ PAC's BP 138/52 HR 58 POX 92% RA.
[2024-11-07 00:11] LABS: Glucose - Point of Care 86 mg/dl (70-99)
[2024-11-07] MEDS: CARDENE 200 IV ×3 (00:24→07:58)
--- NOTE | 2024-11-07 01:30 | PTCARENOTE ---
SBP elevated, CT PA Chavez notified. Cardene changed to [address] PA Chavez.
[2024-11-07 02:06] LABS: Glucose - Point of Care 104 mg/dl (70-99)
[2024-11-07] MEDS: ROXICODONE 5 MG PO ×4 (02:10→21:29)
[2024-11-07] MEDS: APRESOLINE 10 MG IV (02:35)
--- NOTE | 2024-11-07 03:30 | W.PN.CT ---
Today's Communication / Plan
-
-pod #2
-hypertensive with SBP 150-160- required high increase of Cardene to 10 and IV hydralazine 10mg overnight. Extra dose of Cozaar 50mg given yesterday. Increase scheduled dose today.
-CT output: 2 meds 115/340 in 12/24 hrs
-urinary retention after jain removal requiring straight cath (600ml), continue flomax
-follow Qt, especially when on Amio and back on Zoloft
-encourage IS, OOB
Assessment / Plan
-
- Severe symptomatic aortic valve stenosis with functional bicuspid valve- s/p Surgical aortic valve replacement [25 mm Parikh Inspiris Resilia bioprosthetic valve]; Modified left atrial maze [posterior wall isolation using the encompass clamp];
Left atrial appendage exclusion [35 mm device]; Sternal plating by Dr. Morales on 11/05/24, pod #1
- Intraop PORFIRIO: LVEF was 60% preop and 60-65% postop with no new regional wma. RV size and function are both normal. He did have a moderate degree of left ventricular hypertrophy. After coming off cardiopulmonary bypass, there was no paravalvular
leaks, his mean gradient across the new valve while slightly hyperdynamic was approximately 8 mmHg, all leaflets with normal excursion.
- Severe aortic valve stenosis, Bicuspid aortic valve with left right fusion, type II
- Hypertension
- Hyperlipidemia
- Diabetes type 2
- Paroxysmal atrial fibrillation - s/p ablation 2020, DCCV x4
- History of CVA/TIA
- KAYODE
- IBS
- BPH
- Rotator cuff surgery
- Former smoker, quit 2020
- Acute postop thrombocytopenia/coagulopathy - s/p 1 unit platelet, DDAVP and Factor 7
- Acute postop pulmonary insufficiency - resolved
- Acute postop atelectasis
- Acute postop long Qt - monitor
- Acute on chronic postop hypertension - got 5 mg Norvasc, iv Hydralazine x1, required high dose iv Nitro and Cardene
- Acute postop hypovolemia with subsequent hypervolemia (got 2L of LR and 500 Albumin total)
Subjective
Procedure
s/p Surgical aortic valve replacement [25 mm Parikh Inspiris Resilia bioprosthetic valve]; Modified left atrial maze [posterior wall isolation using the encompass clamp]; Left atrial appendage exclusion [35 mm device]; Sternal plating by Dr. Morales
on 11/05/24
-
Date of Service: November 07, 2024
Objective Data
-
Lab Results
11/07/24 04:12
11/07/24 04:12
PT 17.4 Sec (11.4-14.6) H 11/05/24 11:04
INR 1.37 11/05/24 11:04
APTT 35.1 Sec (23.4-35.0) H 11/05/24 11:04
Vital Signs
Vital Signs
Temp Pulse Resp BP Pulse Ox
97.5 F 58 16 123/68 98
11/07/24 04:00 11/07/24 05:00 11/07/24 05:00 11/07/24 04:00 11/07/24 05:00
CT Intake/Output/Weight
11/06/24 11/06/24 11/07/24
06:59 18:59 06:59
Intake Total 1262.5 / 4435.5 1035.3 / 1635.3 600.0 / 1635.3
Output Total 455 / 1585 225 / 940 715 / 940
Balance 807.5 / 2850.5 810.3 / 695.3 -115.0 / 695.3
SaO2: 97
Physical Exam
-
General: AOx3
Cardiovascular: Regular rate & rhythm
Respiratory: Decreased Breath Sounds
Sternum: Stable
Incision: Clean, Dry and Intact
Extremities: No Edema
[2024-11-07] MEDS: DILAUDID 0.25 MG IV (03:31)
[2024-11-07 04:20] LABS: Glucose - Point of Care 110 mg/dl (70-99)
--- NOTE | 2024-11-07 04:35 | PTCARENOTE ---
Patient reassessed. Sinus bradycardia BP 150/52 HR 57 POX 98% 2L NC. Labs drawn. Patient pain controlled see MAR for details.
[2024-11-07 04:42] LABS: Hematocrit 35.3 % (39.0-52.0); Hemoglobin 12.5 g/dL (13.0-18.0); Mean Corp Hgb Conc. 35.4 g/dL (33.0-37.0); Mean Corpuscular Hgb 31.5 pg (27.0-31.0); Mean Corpuscular Volume 88.9 fL (80.0-94.0); Mean Platelet Volume 11.5 fL (7.4-10.4); Platelet Count 91 10^3/uL (130-400); Red Blood Cell Count 3.97 10^6/uL (4.70-6.10); Red Cell Dist. Width 12.9 % (11.5-14.5); White Blood Cell Count 12.4 10^3/uL (4.8-10.8)
[2024-11-07 05:01] LABS: Blood Urea Nitrogen 20 mg/dl (9-20); Calcium 8.4 mg/dl (8.4-10.2); Carbon Dioxide 22 mmol/L (22-30); Chloride 110 mmol/L (98-107); Estimated Creatinine Clearance > 125 ml/min; Glucose 106 mg/dl (70-99); Magnesium 2.2 mg/dl (1.6-2.3); Potassium 3.5 mmol/L (3.5-5.1); Sodium 135 mmol/L (135-145); eGFR > 60.00
[2024-11-07] MEDS: TYLENOL 1000 MG PO ×3 (05:08→20:14)
[2024-11-07] MEDS: KCL 50 IV ×2 (05:08→06:15)
[2024-11-07 06:20] LABS: Glucose - Point of Care 102 mg/dl (70-99)
[2024-11-07 07:16] LABS: Glucose - Point of Care 107 mg/dl (70-99)
[2024-11-07] MEDS: VITAMIN B1 100 MG PO ×2 (07:45→20:14)
[2024-11-07] MEDS: NEURONTIN 100 MG PO ×3 (07:45→21:29)
[2024-11-07] MEDS: NORVASC 5 MG PO (07:45)
[2024-11-07] MEDS: PROTONIX 40 MG PO (07:45)
[2024-11-07] MEDS: FLOMAX 0.4 MG PO (07:45)
[2024-11-07] MEDS: LOPRESSOR 25 MG PO ×2 (07:46→20:16)
[2024-11-07] MEDS: COZAAR 100 MG PO (07:46)
[2024-11-07] MEDS: ZOLOFT 50 MG PO (07:46)
[2024-11-07] MEDS: PACERONE 200 MG PO ×3 (07:47→21:29)
[2024-11-07] MEDS: SENOKOT-S 1 TABLET PO ×2 (07:47→20:14)
[2024-11-07] MEDS: CRESTOR 20 MG PO (07:47)
[2024-11-07] MEDS: MAGNESIUM OXIDE 500 MG PO ×2 (07:47→20:14)
[2024-11-07] MEDS: LOW STRENGTH ASPIRIN 81 MG PO (07:48)
[2024-11-07] MEDS: FOLVITE 1 MG PO (07:48)
[2024-11-07] MEDS: LIDOCAINE 4% PATCH 1 PATCH TOPICAL (07:48)
[2024-11-07] MEDS: THERAGRAN 1 TABLET PO (07:48)
[2024-11-07 08:07] LABS: Glucose - Point of Care 116 mg/dl (70-99)
[2024-11-07] MEDS: NOVOLOG FLEXPEN 4 UNITS SC (08:08)
--- NOTE | 2024-11-07 08:10 | W.PN.INTV ---
Today's Communication / Plan
Recommendations
Up OOB as tolerated
Pain control
Encourage incentive parameter use
Now weaned off Cardene drip and nitroglycerin drip
Now off insulin drip; keep BG 110�140 - would use ISS if BG remains >140
Patient is being downgraded to CVICU-telemetry status. No additional recommendations at this time. Control Room Agent/Pulmonary service will now sign off. Please reconsult if there are any additional questions/concerns, or if patient's respiratory
status deteriorates.
Assessment
-
Assessment: 69-year-old male with a past medical history of aortic valve stenosis, paroxysmal A-fib, hypertension, hyperlipidemia, DM type II, history of CVA/TIA, sleep apnea, IBS, diverticulosis and BPH who presents for elective surgical aortic
valve replacement. Patient known to cardiothoracic surgery service with last visit 10/06/[address] Morales. Patient has history of aortic stenosis dating back as far as August 2020 which was moderate at that time with a peak/mean gradient of 39/26
with an JM of 1.2 cm�. Most recent echo in July 2024 showed a peak/mean gradient of 92/56 mmHg respectively with an JM of 0.1 cm�. He has known bicuspid morphology with right left fusion. Left heart catheterization on 09/03/2024 showed very
mild nonobstructive CAD with severe aortic valvular stenosis. Cardiothoracic intervention was discussed as he has been more short of breath especially with inclines. Patient agreed to aortic valve replacement, and on 11/05/2024, the pt underwent a
surgical aortic valve replacement with a 25 mm bioprosthetic valve, with modified left atrial MAZE, and left atrial appendage exclusion with a 35 mm device. Patient tolerated the procedure well with no complications, and was transferred to the
CVICU postoperatively with Control Room Agent services consulted for additional management/recommendations.
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
Impression:
#Severe aortic valve stenosis with functional bicuspid valve s/p surgical aortic valve replacement with 25 mm bioprosthetic valve (POD#2)
#Paroxysmal A-fib s/p modified left atrial maze + left atrial appendage exclusion with 35mm device (POD #2)
#Acute thrombocytopenia due to above
#DM type II c/b hyperglycemia (A1C: 6.2 on 10/08/2024) - glucose now much improved
#Mild linear scarring seen in the posteromedial left lower lobe (seen on CT TAVR 09/18/2024)
#Former tobacco smoker ([id number] history, quit August 2020)
#Hypertension
#Hyperlipidemia
#DM type II
#Sleep apnea
#IBS
#BPH
Plan:
Patient successfully extubated on 11/05 to nasal cannula, and is currently on room air saturating 96-97% and breathing comfortably
Maintain SpO2 >90-94%
prn nebulized bronchodilators - not currently bronchospastic
Encourage incentive spirometer use q1hr while awake
Pressors/antihypertensive/inotropes/diuretics will be provided as needed
Cardene drip weaned off today as well
Maintain MAP>65
Replete electrolytes with K>4, Mg>2
Mediastinal chest tubes x 2 removed today -he feels much better with his breathing and chest discomfort since they have been removed
Monitor hemoglobin
Monitor platelet count and coags
Transfuse blood products as needed to maintain Hb>7g/dL, plt>50k (given post-operative status)
Monitor blood sugar to maintain euglycemia with goal BG 110-140
Insulin drip now off; recommend to use ISS to keep BG at goal as above
Aspiration precautions
DVT prophylaxis
Early nutrition
Early mobilization
Patient is being downgraded to CVICU-telemetry status. No additional recommendations at this time. Control Room Agent/Pulmonary service will now sign off. Thank you for allowing us to be involved in the care of this patient. Please reconsult if there
are any additional questions/concerns, or if patient's respiratory status deteriorates.
Total time spent today was 57 minutes for this encounter. Time includes reviewing laboratory test/imaging results, reviewing pertinent medical records, obtaining and reviewing medical history, performing an appropriate exam, ordering medications,
tests and procedures. Time also includes documentation of this encounter, coordinating patient care and communicating with other healthcare professionals. Total time does not include separately billed tests performed on this date of service.
Subjective Dataa
Subjective Data
Date of Service:
Date of Service: November 07, 2024
Chief Complaint: Control Room Agent Follow Up
Subjective:
Patient seen earlier today. Resting in bed no acute distress. Chest tubes removed this morning which has helped him greatly feel better. Currently denies shortness of breath or chest pain. He mainly is tired. Heart rate 57, BP 132/81 and
saturating 96% on room air. He denies CALDERON, abdominal pain, nausea, fevers or chills.
Review of Systems
General: Other (Negative unless mentioned above)
Objective Data
Data Reviewed
Vital Signs / I&O / Oxygen:
Vital Signs
Temp Pulse Resp BP Pulse Ox
97.9 F 60 18 157/99 98
11/07/24 07:36 11/07/24 07:47 11/07/24 07:36 11/07/24 07:47 11/07/24 08:37
Intake and Output
11/06/24 11/07/24 11/08/24
06:59 06:59 06:59
Intake Total 4351.0 / 4435.5 1696.6 / 1758.6 124 / 124
Output Total 1565 / 1585 960 / 990
Balance 2786.0 / 2850.5 736.6 / 768.6 94 / 94
SaO2 [CPAP/PSV] 99
SaO2 [SIMV] 100
SaO2 98
Nasal Cannula flow liters per 2
minute
Physical Exam
General: Respiratory Distress (negative), Comfortable, Chills (negative) and Sweats (negative)
HEENT: Normocephalic, Anicteric and Other (R-IJ cordis in place)
Cardiovascular: S1-S2, Murmur (ANA MARIA heard across precordium) and Peripheral Edema (negative)
Respiratory: Clear, Wheeze (negative), Crackles (negative), Rhonchi (negative) and Non-Labored Respirations
GI: Soft, Distended (Abdominal obesity), Non Tender and Normal Bowel Sounds
Neurology: AO x 3 and Tremors (negative)
Skin: Warm, Dry, Cyanosis (negative) and Jaundice (negative)
Labs/Micro/Reports
Lab Data
11/07/24 04:12
11/07/24 04:12
Microbiology
11/05/24 07:30 Urine Urine Culture - Final
NO GROWTH
[2024-11-07 09:33] LABS: Glucose - Point of Care 147 mg/dl (70-99)
[2024-11-07] MEDS: NSS 500 IV (10:25)
[2024-11-07] MEDS: LASIX 20 MG IV (10:25)
[2024-11-07] MEDS: KCL 20 MEQ PO (10:25)
[2024-11-07] MEDS: BACTROBAN 2% OINTMENT 1 APPLIC NASAL ×2 (10:26→20:13)
[2024-11-07 10:34] LABS: Glucose - Point of Care 120 mg/dl (70-99)
--- NOTE | 2024-11-07 10:36 | PTCARENOTE ---
Rec'd pt this shift awake and alert, sitting in chair. Pt on Cardene drip at 10mg/hr and Insulin drip. AM meds given. Oxy given for pain control. Epicardial wires d/c'd by RONNIE Tripathi. See worklist for VS/I and O and assessments.
[2024-11-07] MEDS: GLUCOPHAGE 1000 MG PO ×2 (11:26→17:37)
--- NOTE | 2024-11-07 11:56 | CM ---
Addendum entered by Raina Banerjee RN 11/07/24 11:57:
Offered patient Alcohol Counseling information, patient declined.
Original Note:
Chart reviewed. Patient is independent of ADLS, lives with his in a [facility], ramp access, 0 DME. Plan is for the patient to return home with CT Transitional RN. CM to follow
[2024-11-07] MEDS: FARXIGA 10 MG PO (12:02)
[2024-11-07 12:16] LABS: Glucose - Point of Care 103 mg/dl (70-99)
[2024-11-07] MEDS: NOVOLOG FLEXPEN-MODERATE RESISTANCE SC ×2 (12:35→17:37)
--- NOTE | 2024-11-07 12:36 | PTCARENOTE ---
kemar weaned to off. Chest tubes d/c'd. A-line d/c'd. Insulin drip d/c'd.
--- NOTE | 2024-11-07 13:18 | W.PN.CARDCBS ---
Addendum entered and electronically signed by Brooklynn Fields MD 11/07/24 13:54:
I saw and examined the patient.
The Tele Rn's note was reviewed and I agree with the note.
Comment: Stable overnight. Exam with regular rate and rhythm, coarse anterior breath sounds, right IJ catheter in place. Trace lower extremity edema.
He is status post AVR/maze/left atrial appendage clip 11/05/2024
Hypertension noted managed by primary service. Medication alterations noted.
Initially with increased QT interval. EKG from today pending. Yesterday's EKG improved.
Follow electrolytes and replete.
Telemetry, labs independently reviewed.
Original Note:
Today's Communication / Plan
-
continue post op care
follow BP trends
follow QTc
Impression / Plan
-
Primary Conference Service Coordinator: Dr. Perez of [facility]
Assessment:
Progressive, severe bicuspid aortic valve stenosis s/p surgical AVR with bioprosthetic valve, maze, left atrial appendage clip 11/05/2024
Very mild nonobstructive CAD by cardiac catheterization
Paroxysmal atrial fibrillation status post ablation 2020
Hypertension
Hyperlipidemia
DM2
Anxiety
Former tobacco use, recently quit
Daily alcohol use
Echocardiogram at OSH 08/06/2024: EF 55 to 60%, peak/mean gradients 92/56 mmHg, mild to moderate AR, functionally bicuspid aortic valve with RCC and LCC calcification, mild to moderate AI
Plan:
- Patient underwent surgical AVR with bioprosthetic valve, maze, left atrial appendage clip 11/05/2024
- BPs improving. off cardene and nitro gtt. on lopressor 25mg BID (was on propranolol prior to admission), norvasc 5mg daily, cozaar 100mg daily.
- hgb stable at 12.5. continue asa
- ordered repeat EKG 11/07 to reassess QTc as on amio and zoloft.
- In SR on review of tele overnight. Preoperatively was not on anticoagulation per primary chemistry research assistant due to low burden post ablation in 2020, however [id number] score of 4 for age, HTN, DM2, vascular disease. would recommend OAC if has any post
op afib.
- continue post op care. encouraged OOB/IS
- OP follow up with ATC
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
Progress Note - Conference Service Coordinator
Subjective
Date of Service: November 07, 2024
doing well. reports feeling much improved s/p CT removal
Objective
Labs:
11/07/24 04:12
11/07/24 04:12
Labs
Hgb 12.5 g/dL (13.0-18.0) L 11/07/24 04:12
Hct 35.3 % (39.0-52.0) L 11/07/24 04:12
Plt Count 91 10^3/uL (130-400) L 11/07/24 04:12
PT 17.4 Sec (11.4-14.6) H 11/05/24 11:04
INR 1.37 11/05/24 11:04
APTT 35.1 Sec (23.4-35.0) H 11/05/24 11:04
Sodium 135 mmol/L (135-145) 11/07/24 04:12
Potassium 3.5 mmol/L (3.5-5.1) 11/07/24 04:12
BUN 20 mg/dl (9-20) 11/07/24 04:12
Creatinine 0.6 mg/dL (0.7-1.3) L 11/07/24 04:12
Glucose 106 mg/dl (70-99) H 11/07/24 04:12
Vital Signs and I&O:
Vital Signs
Temp Pulse Resp BP Pulse Ox
97.8 F 55 18 112/93 96
11/07/24 12:21 11/07/24 12:15 11/07/24 12:21 11/07/24 12:01 11/07/24 12:21
Vital Signs
Temp Pulse Resp BP Pulse Ox
97.8 F 55 18 112/93 96
11/07/24 12:21 11/07/24 12:15 11/07/24 12:21 11/07/24 12:01 11/07/24 12:21
Intake & Output
11/05/24 11/06/24 11/07/24 11/08/24
07:59 07:59 07:59 07:59
Intake Total 4435.5 / 4568.0 1736.1 / 1736.1 1000 / 1000
Output Total 1585 / 1585 970 / 970 600 / 600
Balance 2850.5 / 2983.0 766.1 / 766.1 400 / 400
Physical Exam
Physical Exam
GEN: No distress, awake, alert, oriented x3.
HEENT: supple, anicteric, mmm, eomi
LUNGS: CTA B/L, no wheezes
CV: Reg, S1/S2, no murmur
ABD: soft, BS+, NT/ND
EXT: No cyanosis, clubbing. trace edema of B/L LE
NEURO: Gross non-focal
SKIN: Warm, pink, dry. No rash. Sternotomy incision c/d/i.
[2024-11-07] MEDS: FERRLECIT 110 MG IV (14:19)
[2024-11-07 17:37] LABS: Glucose - Point of Care 106 mg/dl (70-99)
--- NOTE | 2024-11-07 20:00 | PTCARENOTE ---
Assumed care of the patient at 1900. Patient OOB to chair, AOx3, pleasant. SR rate 60's on the monitor, heart tones regular and audible, pulses palpable, trace LE edema. Lungs clear, IS encouraged, on RA and 2LNC for bedtime. Normoactive BS, patient
passing flatus, no BM, good appetite. Voiding spontaneously using the urinal, urine clear yellow. R wrist PIV, RIJ cordis with KVO. MSAS 0 on assessment, MSAS completed per protocol, CVPA aware. Patient helped back into bed, bedtime care performed,
call noel within reach, assessment of needs ongoing.
[2024-11-07 22:26] LABS: Glucose - Point of Care 123 mg/dl (70-99)
[2024-11-08] VITALS (7 sets, daily range): BP systolic 123–153; BP diastolic 69–86; PULSE 63; O2SAT 98–99; BMI 30.7
--- NOTE | 2024-11-08 | PTCARENOTE ---
Patient had a large BM x2 on the toilet, no acute issues. Sleeping between care, oxycodone for pain relief, VSS. Assessment of needs ongoing.
[2024-11-08 03:45] LABS: Hematocrit 35.4 % (39.0-52.0); Hemoglobin 12.2 g/dL (13.0-18.0); Mean Corp Hgb Conc. 34.5 g/dL (33.0-37.0); Mean Corpuscular Hgb 31.8 pg (27.0-31.0); Mean Corpuscular Volume 92.2 fL (80.0-94.0); Mean Platelet Volume 11.3 fL (7.4-10.4); Platelet Count 100 10^3/uL (130-400); Red Blood Cell Count 3.84 10^6/uL (4.70-6.10); White Blood Cell Count 10.3 10^3/uL (4.8-10.8)
[2024-11-08 03:58] LABS: Blood Urea Nitrogen 18 mg/dl (9-20); Calcium 8.6 mg/dl (8.4-10.2); Carbon Dioxide 24 mmol/L (22-30); Chloride 108 mmol/L (98-107); Estimated Creatinine Clearance > 125 ml/min; Glucose 106 mg/dl (70-99); Magnesium 2.1 mg/dl (1.6-2.3); Potassium 4.5 mmol/L (3.5-5.1); Sodium 136 mmol/L (135-145); eGFR > 60.00
--- NOTE | 2024-11-08 04:25 | W.PN.CT ---
Today's Communication / Plan
-
-pod #3
-No issues overnight
-Blood pressure well controlled
-urinary retention after jain removal now voiding spontaneously
-follow Qt, especially when on Amio and back on Zoloft
-encourage IS, OOB
-discharge planning
Assessment / Plan
-
- Severe symptomatic aortic valve stenosis with functional bicuspid valve- s/p Surgical aortic valve replacement [25 mm Parikh Inspiris Resilia bioprosthetic valve]; Modified left atrial maze [posterior wall isolation using the encompass clamp];
Left atrial appendage exclusion [35 mm device]; Sternal plating by Dr. Morales on 11/05/24, pod #3
- Intraop PORFIRIO: LVEF was 60% preop and 60-65% postop with no new regional wma. RV size and function are both normal. He did have a moderate degree of left ventricular hypertrophy. After coming off cardiopulmonary bypass, there was no paravalvular
leaks, his mean gradient across the new valve while slightly hyperdynamic was approximately 8 mmHg, all leaflets with normal excursion.
- Severe aortic valve stenosis, Bicuspid aortic valve with left right fusion, type II
- Hypertension
- Hyperlipidemia
- Diabetes type 2
- Paroxysmal atrial fibrillation - s/p ablation 2020, DCCV x4
- History of CVA/TIA
- KAYODE
- IBS
- BPH
- Rotator cuff surgery
- Former smoker, quit 2020
- Acute postop thrombocytopenia/coagulopathy - s/p 1 unit platelet, DDAVP and Factor 7
- Acute postop pulmonary insufficiency - resolved
- Acute postop atelectasis
- Acute postop long Qt - monitor
- Acute on chronic postop hypertension - got 5 mg Norvasc, iv Hydralazine x1, required high dose iv Nitro and Cardene
- Acute postop hypovolemia with subsequent hypervolemia (got 2L of LR and 500 Albumin total)
Subjective
Procedure
s/p Surgical aortic valve replacement [25 mm Parikh Inspiris Resilia bioprosthetic valve]; Modified left atrial maze [posterior wall isolation using the encompass clamp]; Left atrial appendage exclusion [35 mm device]; Sternal plating by Dr. Morales
on 11/05/24
-
Date of Service: November 08, 2024
Objective Data
-
Lab Results
11/08/24 03:12
11/08/24 03:12
PT 17.4 Sec (11.4-14.6) H 11/05/24 11:04
INR 1.37 11/05/24 11:04
APTT 35.1 Sec (23.4-35.0) H 11/05/24 11:04
Vital Signs
Vital Signs
Temp Pulse Resp BP Pulse Ox
97.7 F 64 18 123/72 95
11/08/24 03:25 11/08/24 03:25 11/08/24 03:25 11/08/24 00:34 11/08/24 03:25
CT Intake/Output/Weight
11/07/24 11/07/24 11/08/24
06:59 18:59 06:59
Intake Total 661.3 / 1758.6 2104 / 2341 237 / 2341
Output Total 735 / 990 2030 / 2530 500 / 2530
Balance -73.7 / 768.6 74 / -189 -263 / -189
SaO2: 95
Physical Exam
-
General: AOx3
Cardiovascular: Regular rate & rhythm
Respiratory: Clear
Sternum: Stable
Incision: Clean, Dry and Intact
Extremities: No Edema
[2024-11-08] MEDS: TYLENOL 1000 MG PO (05:28)
[2024-11-08 07:57] LABS: Glucose - Point of Care 152 mg/dl (70-99)
[2024-11-08] MEDS: NOVOLOG FLEXPEN-MODERATE RESISTANCE 1 UNITS SC (08:34)
[2024-11-08] MEDS: PACERONE 200 MG PO (08:35)
[2024-11-08] MEDS: GLUCOPHAGE 1000 MG PO (08:37)
[2024-11-08] MEDS: FLOMAX 0.4 MG PO (08:37)
[2024-11-08] MEDS: THERAGRAN 1 TABLET PO (08:37)
[2024-11-08] MEDS: FARXIGA 10 MG PO (08:37)
[2024-11-08] MEDS: ZOLOFT 50 MG PO (08:38)
[2024-11-08] MEDS: NEURONTIN 100 MG PO (08:38)
[2024-11-08] MEDS: VITAMIN B1 100 MG PO (08:38)
[2024-11-08] MEDS: LOW STRENGTH ASPIRIN 81 MG PO (08:38)
[2024-11-08] MEDS: CRESTOR 20 MG PO (08:38)
[2024-11-08] MEDS: COZAAR 100 MG PO (08:39)
[2024-11-08] MEDS: LOPRESSOR 25 MG PO (08:39)
[2024-11-08] MEDS: NORVASC 5 MG PO (08:39)
[2024-11-08] MEDS: MAGNESIUM OXIDE 500 MG PO (08:39)
[2024-11-08] MEDS: PROTONIX 40 MG PO (08:40)
[2024-11-08] MEDS: FOLVITE 1 MG PO (08:40)
[2024-11-08] MEDS: SENOKOT-S PO (09:44)
[2024-11-08] MEDS: LIDOCAINE 4% PATCH TOPICAL (09:44)
[2024-11-08] MEDS: NSS IV (09:45)
[2024-11-08] MEDS: BACTROBAN 2% OINTMENT 1 APPLIC NASAL (09:46)
--- NOTE | 2024-11-08 10:21 | PTCARENOTE ---
pt sr on the monitor, hr in the 60s, vss. pt offers no complaints this am. IJ removed by pily Shin. pt tolerated well. pt ambulated through the ayers ad tolerated well. pt educated on plan of care and verbalized understanding. call noel within reach.
--- NOTE | 2024-11-08 13:48 | W.DCSUMMARY ---
Discharge Summary
Discharge Data
Date of Admission: 11/05/24
Date of Discharge: 11/08/24
Total time spent discharging patient (in min): 45
-
Pending Results: No
Hospital Course
Primary care physician: Paula Mancilla
Outpatient hand tire trimmer: Rita Bejarano
Inpatient consultants: Cardiology
Procedures:
1. Aortic Valve Replacement, 25mm Bioprosthetic, MAZE, Left atrial appendage ligation, rigid sternal fixation
Primary Diagnosis:
1. Aortic Stenosis
Secondary Diagnoses:
1. Hypertension
2. Hyperlipidemia
3. Non-Insulin Dependent Diabetes, type 2
4. Osteoarthritis
5. Cluster headaches
6. Atrial Fibrillation
7. Benign prostatic hyperplasia
8. History of cerebrovascular accident
HPI: Patient presented for evaluation for aortic stenosis with functional bicuspid aortic valve. Patient was evaluated in the surgical office for both SAVR and TAVR considerations and ultimately he was recommended to undergo SAVR with concomitant
maze and left atrial appendage ligation. He was evaluated by Dr. Morales in the office and deemed an appropriate open surgical candidate.
Hospital course: Patient presented electively and underwent the above-mentioned procedure. Please refer to Dr. Morales's separately dictated operative report for complete details. Postoperatively the patient progressed well. He was transferred to
the intensive care unit on Cardene. He did require a unit of platelets for postoperative coagulopathy. He was also given a dose of desmopressin as well as factor VII. Ultimately the coagulopathy resolved and he was stated per usual to call around
530 that evening.
Postoperative day #1: Continues to progress well. Slowly restarting home antihypertensives and weaning Cardene drip. He began working with physical therapy occupational therapy and cardiac rehab.
Postoperative day #2: Antihypertensives continue to be titrated. Diabetic regimen was optimized. He was gently diuresed with 20 mg of IV Lasix. He was weaned to room air.
Postoperative day #3: Patient continues to progress well. He appears stable for discharge today. He was able to shower and ambulate with relative ease. I reviewed discharge instructions extensively with the patient and answered his questions to
satisfaction.
Home medication changes: Added Farxiga and changed propanolol to metoprolol. Provided 7 days worth of oxycodone and tylenol for pain. Discontinued Jardiance.
Discharge Plan
-
Patient Disposition: Home (Routine Discharge)
Discharge Diagnosis/Procedures: - Severe aortic valve stenosis, Bicuspid aortic valve with left right fusion, type II
- Hypertension
- Hyperlipidemia
- Diabetes type 2
- Paroxysmal atrial fibrillation - status post ablation & cardioversion x 4
- History of cerebrovascular accident
- Obstructive sleep apnea
- Irritable bowel syndrome
- Benign prostatic hyperplasia
- Rotator cuff surgery
- Former smoker, quit 2020
- Acute Postoperative thrombocytopenia/coagulopathy
- Acute Postoperative pulmonary insufficiency - resolved
- Acute Postoperative atelectasis
- Acute Postoperative long Qt - monitor
- Acute on chronic Postoperative hypertension
- Acute Postoperative hypovolemia with subsequent hypervolemia
Diet: Low Cholesterol, Low Sodium and Diabetic, Carb Controlled
Activity: No strenuous activity
Driving Restrictions: Not until seen by your Dr
Bathing Restrictions: OK to Shower
Other Services: Cardiac Rehab
Specialty Instructions: Weigh Daily- Call MD for wt gain/loss 3 lbs overnight/5 lbs in 1 week
Activity Restrictions/Additional Instructions:
Please call [facility] Cardiac Rehab to get scheduled. P: [phone]
ACTIVITY:
-No strenuous activity: no heavy lifting, pushing, pulling anything over 15 pounds for one month
-continue to use stairs as tolerated
DRIVING RESTRICTIONS:
-No driving for one month or until approved by your surgeon
WOUND CARE:
-Shower daily. Use soap & water.
-No lotions, creams or powders on incision area.
DIET:
-continue a low fat/low cholesterol diet.
-IF you are diabetic, continue carb controlled diet.
CARDIAC REHAB:
-Please make appointment to start in 5-6 weeks with your local hospital program. (See Cardiac Rehabilitation Discharge Booklet).
SPECIALTY INSTRUCTIONS:
-Weigh yourself daily. Call your physician for any weight gain/loss of 3 lbs overnight or 5 lbs in one week.
-REPORT any clicking noise or uneven appearance of your sternum to your surgeon immediately.
-If you smoke, you are instructed to quit. The [place] smoking hotline phone number is [phone]
Referrals:
CT Transitional Care Nurse [Outside]
Referral Note: The Cardiothoracic Transitional Care Nurse will call you to set up a visit in 1-2 days.
Paula Mancilla MD [Family Provider]
Justino Morales MD [Active, Cardiac Surgery] - 11/24/24 2:00 pm
Desmond Perez DO [Affiliate, Cardiology] - 01/01/25 9:30 am
Prescriptions:
New
dapagliflozin propanediol 10 mg Tablet
10 mg PO DAILY Qty: 30 2RF
acetaminophen 325 mg Tablet
650 mg PO Q4HPRN PRN (Reason: mild pain,headache,temp >101F ) Qty: 60 0RF
oxycodone 5 mg Tablet
5 mg PO Q4HPRN PRN (Reason: moderate pain) Qty: 28 0RF
metoprolol tartrate 25 mg Tablet
25 mg PO BID Qty: 60 2RF
amlodipine 5 mg Tablet
5 mg PO DAILY Qty: 30 2RF
Continued
tamsulosin 0.4 MG capsule
0.4 mg PO DAILY
metformin 1,000 MG tablet
1,000 mg PO BID
losartan 100 MG tablet
100 mg PO DAILY
sertraline 50 MG tablet
50 mg PO DAILY
omega-3 acid ethyl esters [Lovaza] 1 GM capsule
2 gm PO BID
zinc acetate 50 mg (zinc) Capsule
50 mg PO DAILY
cholecalciferol (vitamin D3) [Vitamin D3] 50 mcg (2,000 unit) Capsule
50 mcg PO DAILY
Probiotic 100 billion cell Capsule
1 cap PO DAILY
aspirin 81 mg Capsule
81 mg PO DAILY
ascorbic acid (vitamin C) [Vitamin C] 1,000 mg Tablet
1,000 mg PO DAILY
Multivitamin 50 Plus Tablet
1 tab PO DAILY
rosuvastatin 20 mg Tablet
20 mg PO DAILY
fexofenadine 180 mg Tablet
180 mg PO DAILY
fluticasone propionate 50 mcg/actuation [place],Suspension
1 spray INTRANASAL DAILY
Discontinued
Jardiance 25 MG tablet
25 mg PO DAILY
propranolol 160 mg Capsule,Extended Release 24 Hr
160 mg PO DAILY
propranolol 80 mg Capsule,Extended Release 24 Hr
80 mg PO DAILY
magnesium 500 mg tablet
500 mg PO DAILY
Discharge Orders:
Discharge Patient (As Directed); Ordered 11/08/24
Ordered By: Isidro Maher
Care Plan Goals
Care Plan Goals:
Problem: Readiness for enhanced knowledge related to diagnosis and treatment plan
Goal: Understand your diagnosis and treatment plan needs, including medications if applicable.
Instructions: Know your diagnosis, underlying causes and treatment plan options, including medications if applicable. Consult with your health care team to learn about your diagnosis and treatment plan, including medications if applicable.
Discharge Date and Time
Print Language: MAURITANIAN
--- NOTE | 2024-11-08 14:31 | PTCARENOTE ---
pt showered and tolerated well.
pt d/c instructions read to pt and pt verbalized understanding. pt left via wheelchair with belongings from room. iv and tele removed. pt left via wheelchair w/ staff member.
== END 2024-11-08 14:34 | disposition home or self-care (01) | DRG 219 ==
LOC: CVICU 04:58
PROVIDERS: Anesthesiology; Clinical Nurse Specialist Acute Care; ADMITTING PHYSICIAN Thoracic Surgery (Cardiothoracic Vascular Surgery); CONSULT PHYSICIAN Internal Medicine Critical Care Medicine; FAMILY PHYSICIAN Family Medicine; OTHER PHYSICIAN Internal Medicine Cardiovascular Disease
PROC: 5A1221Z Performance of Cardiac Output, Continuous (ICD-10-PCS; 2024-11-05)
PROC: B24BZZ4 Ultrasonography of Heart with Aorta, Transesophageal (ICD-10-PCS; 2024-11-05)
PROC: 02L70CK Occlusion of Left Atrial Appendage with Extraluminal Device, Open Approach (ICD-10-PCS; 2024-11-05)
PROC: 30233R1 Transfusion of Nonautologous Platelets into Peripheral Vein, Percutaneous Approach (ICD-10-PCS; 2024-11-05)
PROC: 02580ZZ Destruction of Conduction Mechanism, Open Approach (ICD-10-PCS; 2024-11-05)
PROC: 02RF08Z Replacement of Aortic Valve with Zooplastic Tissue, Open Approach (ICD-10-PCS; 2024-11-05)
DX: I35.0 Nonrheumatic aortic (valve) stenosis (principal); J95.2 Acute pulmonary insufficiency following nonthoracic surgery; D68.9 Coagulation defect, unspecified; J98.11 Atelectasis; I48.0 Paroxysmal atrial fibrillation; E11.9 Type 2 diabetes mellitus without complications; K58.9 Irritable bowel syndrome, unspecified; E78.00 Pure hypercholesterolemia, unspecified; F10.90 Alcohol use, unspecified, uncomplicated; I95.81 Postprocedural hypotension; D69.59 Other secondary thrombocytopenia; N40.0 Benign prostatic hyperplasia without lower urinary tract symptoms; F41.9 Anxiety disorder, unspecified; M19.90 Unspecified osteoarthritis, unspecified site; G47.33 Obstructive sleep apnea (adult) (pediatric); E86.1 Hypovolemia; I97.3 Postprocedural hypertension; Y83.2 Surgical operation with anastomosis, bypass or graft as the cause of abnormal reaction of the patient, or of later complication, without mention of misadventure at the time of the procedure; I25.10 Atherosclerotic heart disease of native coronary artery without angina pectoris; I10 Essential (primary) hypertension; Z79.82 Long term (current) use of aspirin; Z79.84 Long term (current) use of oral hypoglycemic drugs; Z79.899 Other long term (current) drug therapy; Z86.73 Personal history of transient ischemic attack (TIA), and cerebral infarction without residual deficits; Z87.891 Personal history of nicotine dependence; Z82.49 Family history of ischemic heart disease and other diseases of the circulatory system
CPT/HCPCS: 88305; 88311; 33259; 36415; 71045; 80048; 80053; 81003; 81015; 82248; 82330; 82565; 82805; 82810; 82947; 82962; 83036; 83735; 84132; 84302; 84520; 85014; 85018; 85025; 85027; 85049; 85610; 85730; 86850; 86900; 86901; 86920; 87070; 87086; 93005; 93312; 93320; 93325; 93650; 93880; 94640; C1713; J2597; J2916; P9045; P9047; P9073